=== PATIENT | female | born 1950 | race African-American/Black ===

== ENCOUNTER 2016-07-14 15:41 | Inpatient (IN) | payer MEDICARE, OTHER ==
[~2016-07-14] VITALS: Ht 160 cm; Wt 118.0 kg
--- NOTE | 2016-07-14 15:55 | EKG ---
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
[2016-07-14] MEDS ORDERED: IV NORMAL SALINE 1,000ML 1,000 ML IV SCH (15:56)
[2016-07-14] MEDS ORDERED: 0.9 % SODIUM CHLORIDE 10 ML DISP.SYRIN. IV PRN (16:00)
--- NOTE | 2016-07-14 16:10 | PHYS DOC ---
Past History Past Medical History: CAD, Diabetes Past Surgical History: Cholecystectomy, Knee Replacement (the left), Tubal ligation Additional Past Surgical Histo: the left Smoking: Non-smoker Alcohol Use: None Drug Use: None Adult General Chief Complaint Chief Complaint: CHEST PAIN HPI HPI Patient is a pleasant 66-year-old female with history of hypertension and diabetes who presents with abdominal pain and chest pain that began at 3 AM this morning. Patient was 7 from insomnia and woke up at 3 AM and drank 2 cups of coffee. She developed lower suprapubic abdominal pain described as crampy and achy with no radiation that pain waxed and waned for approximately 2-3 hours since exam resolved. Patient then shortly thereafter about noon developed epigastric abdominal pain radiating into the chest described as sharp in nature without radiation to the back shoulder or neck. Patient denies any shortness of breath with the symptoms at this time but did develop some mild dizziness without cough or URI symptoms, fevers, chills, diarrhea. She does admit she had 7 small bowel movements today most of well heart formed stool. Patient denies any trauma, sick contacts or similar symptoms. No change in medications. Patient admits 3 months ago in April she had a knee replacement on the left than suffering from bilateral lower extremity edema since. Patient also mentioned she had ultrasound done several weeks ago at another facility because of her swelling and pain in her lower legs and then showed no DVT. Nothing causes her abdominal pain to increase despite eating food, exertion or position. Review of Systems Review of Systems Constitutional: Denies fever or chills [] Eyes: Denies change in visual acuity, redness, or eye pain [] HENT: Denies nasal congestion or sore throat [] Respiratory: Denies cough or shortness of breath [] Cardiovascular: No additional information not addressed in HPI [] GI: Complains of abdominal pain without nausea vomiting but only constipation. : Denies dysuria or hematuria [] Musculoskeletal: Denies back pain or she does have lower extremity edema and pain has chronic in nature. Integument: Denies rash or skin lesions [] Neurologic: Denies headache, focal weakness or sensory changes [] Endocrine: Denies polyuria or polydipsia [] Current Medications Current Medications Current Medications Medications (Trade) Dose Ordered Sig/Abhishek Start Time Stop Time Status Last Admin Dose Admin Aspirin (Children'S Aspirin) 324 mg 1X ONCE 07/14/16 16:00 07/14/16 16:01 UNV Hydromorphone HCl (Dilaudid) 0.5 mg 1X ONCE 07/14/16 16:00 07/14/16 16:01 UNV Sodium Chloride (Normal Saline Flush) 10 ml QSHIFT PRN 07/14/16 16:00 UNV Physical Exam Physical Exam Constitutional: Well developed, well nourished, no acute distress, non-toxic appearance. [] HENT: Normocephalic, atraumatic, bilateral external ears normal, oropharynx moist, no oral exudates, nose normal. [] Eyes: PERRLA, EOMI, conjunctiva normal, no discharge. [] Neck: Normal range of motion, no tenderness, supple, no stridor. [] Cardiovascular:Heart rate regular rhythm, no murmur [] Lungs & Thorax: Bilateral breath sounds clear to auscultation [] Abdomen: Bowel sounds normal, soft, no tenderness, no masses, no pulsatile masses. [] Skin: Warm, dry, no erythema, no rash. [] Back: No tenderness, no CVA tenderness. [] Extremities: No tenderness, no cyanosis, no clubbing, ROM intact, no edema. [] Neurologic: Alert and oriented X 3, normal motor function, normal sensory function, no focal deficits noted. [] Psychologic: Affect normal, judgement normal, mood normal. [] Current Patient Data Lab Results Laboratory Tests Test 07/14/16 16:00 07/14/16 16:08 07/14/16 16:10 White Blood Count 6.8 x10^3/uL (4.0-11.0) Red Blood Count 4.45 x10^6/uL (3.50-5.40) Hemoglobin 11.2 g/dL (12.0-15.5) L Hematocrit 34.1 % (36.0-47.0) L Mean Corpuscular Volume 77 fL (79-100) L Mean Corpuscular Hemoglobin 25 pg (25-35) Mean Corpuscular Hemoglobin Concent 33 g/dL (31-37) Red Cell Distribution Width 20.6 % (11.5-14.5) H Platelet Count 218 x10^3/uL (140-400) Neutrophils (%) (Auto) 73 % (31-73) Lymphocytes (%) (Auto) 12 % (24-48) L Monocytes (%) (Auto) 10 % (0-9) H Eosinophils (%) (Auto) 5 % (0-3) H Basophils (%) (Auto) 1 % (0-3) Neutrophils # (Auto) 5.0 x10^3uL (1.8-7.7) Lymphocytes # (Auto) 0.8 x10^3/uL (1.0-4.8) L Monocytes # (Auto) 0.7 x10^3/uL (0.0-1.1) Eosinophils # (Auto) 0.3 x10^3/uL (0.0-0.7) Basophils # (Auto) 0.0 x10^3/uL (0.0-0.2) D-Dimer (Amy) 2.85 mg/L (0.00-0.50) H Sodium Level 143 mmol/L (136-145) Potassium Level 3.1 mmol/L (3.5-5.1) L Chloride Level 104 mmol/L (98-107) Carbon Dioxide Level 30 mmol/L (21-32) Anion Gap 9 (6-14) Blood Urea Nitrogen 8 mg/dL (7-20) Creatinine 0.7 mg/dL (0.6-1.0) Estimated GFR (Cockcroft-Gault) 101.0 BUN/Creatinine Ratio 11 (6-20) Glucose Level 177 mg/dL (70-99) H Calcium Level 9.3 mg/dL (8.5-10.1) Magnesium Level 1.7 mg/dL (1.8-2.4) L Total Bilirubin 0.7 mg/dL (0.2-1.0) Aspartate Amino Transferase (AST) 15 U/L (15-37) Alanine Aminotransferase (ALT) 16 U/L (14-59) Alkaline Phosphatase 62 U/L (46-116) Creatine Kinase 50 U/L (26-192) Creatine Kinase MB (Mass) 0.7 ng/mL (0.0-3.6) Creatine Kinase MB Relative Index 1.4 % (0-4) Troponin I Quantitative 0.030 ng/mL (0-0.055) WR-Faf-O-Type Natriuretic Peptide 623 pg/mL (0-124) H Total Protein 8.3 g/dL (6.4-8.2) H Albumin 4.1 g/dL (3.4-5.0) Albumin/Globulin Ratio 1.0 (1.0-1.7) Lipase 131 U/L (73-393) Urine Collection Type Unknown Urine Color Straw Urine Clarity Clear Urine pH 7.5 Urine Specific [place] 1.015 Urine Protein 100 mg/dl (NEG-TRACE) Urine Glucose (UA) Neg mg/dL (NEG) Urine Ketones (Stick) Neg mg/dL (NEG) Urine Blood Trace (NEG) Urine Nitrite Neg (NEG) Urine Bilirubin Neg (NEG) Urine Urobilinogen Dipstick 0.2 mg/dL (0.2 mg/dL) Urine Leukocyte Esterase Neg (NEG) Urine RBC Occ /HPF (0-2) Urine WBC 1-4 /HPF (0-4) Urine Squamous Epithelial Cells Mod /LPF Urine Bacteria 0 /HPF (0-FEW) EKG EKG [] Radiology/Procedures Radiology/Procedures [] IMAGING REPORT Signed PATIENT: MARGO REYES ACCOUNT: [id number] : 1950 LOCATION: ER AGE: 66 SEX: F EXAM STATUS: REG ER ORD. PHYSICIAN: DAVE JOHNSTON MD REASON: chest pain PROCEDURE: CHEST PA & LATERAL Examination: 2 views of the chest History: History of diabetes, shortness of breath Comparison: 10/20/2005 Findings: Mild cardiomegaly. There is prominent appearing bilateral interstitial lung markings likely mild congestive change. Impression: Mild congestive changes DICTATED AND SIGNED BY: JESE MENDEZ MD DATE: 07/14/161657 CC: DAVE JOHNSTON MD; EL GASTELUM Signed PATIENT: MARGO REYES ACCOUNT: [id number] : 1950 LOCATION: ER AGE: 66 SEX: F EXAM STATUS: REG ER ORD. PHYSICIAN: DAVE JOHNSTON MD REASON: lower leg pain and swelling PROCEDURE: VENOUS LOWER EXT BILATERAL Examination: Ultrasound bilateral lower extremity venous duplex History: History of bilateral leg pain, swelling Comparison: None available Technique: Grayscale, color Doppler 2-D, spectral waveform analysis of the bilateral lower extremity venous system were performed Findings: The visualized common femoral vein, superior femoral vein, popliteal vein demonstrate normal compression and augmentation of flow. The visualized calf veins are patent. Impression: No evidence of deep venous thrombosis identified in the visualized bilateral lower extremity venous system. DICTATED AND SIGNED BY: JESE MENDEZ MD DATE: 07/14/16 1650 CC: DAVE JOHNSTON MD; EL GASTELUM ~ Course & Med Decision Making Course & Med Decision Making Pertinent Labs and Imaging studies reviewed. (See chart for details) She presents with chest pain began as epigastric pain now rating this in the chest with some [place] after drinking coffee. Patient's initial troponin is negative EKG read by Dr. Johnston time 1553 07/14/2016 demonstrates sinus rhythm with marked sinus arrhythmia. There were QRS QRS is normal with an approximately 88 patient demonstrates left atrial enlargement as evidenced by P waves to the greater than 2 mm in lead 2. Patient has nausea of a T-wave flattening in the anterior leads V1 area patient has relatively poor R-wave progression. This juncture is also noted on her laboratory work her d-dimer is markedly elevated at 2.85. Ultrasound completed today and there is no evidence of DVT. Her pro BNP is mildly elevated above 650 although she doesn't look heart failure patient does have cephalization and cardiomegaly on chest x-ray. CT his chest is still pending at this time. CTA completed that demonstrates no PE, but LAD is noted with plueral effusion. Patient admitted to Dr. Barber secondary to CHF that might be from cardiac ischemia. DDX. [] Signed PATIENT: MARGO REYES ACCOUNT: [id number] : 1950 LOCATION: ER AGE: 66 SEX: F EXAM STATUS: REG ER ORD. PHYSICIAN: DAVE JOHNSTON MD REASON: sob with cp PROCEDURE: CT ANGIOGRAPHY CHEST PROCEDURE CTA of the chest with and without contrast HISTORY Diabetes. Chest pain with shortness of air less than 24 hours. TECHNIQUE Noncontrast axial localizer was performed. After IV infusion of 75 milliliters of Omnipaque 300, helical CT scanning of the chest was performed using the CT pulmonary embolism protocol. A coronal MIP reconstruction was generated. One or more of the following individualized dose reduction techniques were utilized for this study: 1. Automated exposure control 2. Adjustment of the mA and/or kV according to patient size 3. Use of iterative reconstruction technique COMPARISON None available. FINDINGS Mediastinal lymph nodes are seen. Largest lymph node is seen just to the left of the aortic arch measuring 18 millimeters. Another lymph node is seen in the azygos region measuring 16 millimeters. The heart size is enlarged. A mild pericardial effusion is seen. No focal aneurysmal dilatation or dissection of the thoracic aorta is seen. The main pulmonary artery is enlarged. Right and left main pulmonary arteries are enlarged. No pulmonary embolism is seen however. Small right-sided pleural effusion is seen. Mild ground-glass lung infiltrates are seen which may represent pulmonary edema or atelectasis. No pneumothorax is seen. The proximal bronchial tree is patent. No osteolytic process is seen. No adrenal mass is evident. IMPRESSION No pulmonary embolism. Enlarged main pulmonary trunk and right and left main pulmonary arteries. This may be seen with pulmonary arterial hypertension. Cardiomegaly with small pericardial effusion. Small right-sided pleural effusion. Ground-glass lung infiltrates bilaterally which may represent pulmonary edema or atelectasis. Mediastinal lymph nodes. Clinical significance of these lymph nodes is uncertain. If clinically indicated, follow-up chest CT with IV contrast in 6 months may be helpful to ensure stability. Electronically signed by: Rosalva Morelos MD (July 14, 2016 17:48:04) DICTATED AND SIGNED BY: ROSALVA MORELOS MD DATE: 07/14/16 1748 CC: DAVE JOHNSTON MD; EL GASTELUM ~ [employer] Disclaimer Dragon Disclaimer This chart was dictated in whole or in part using Voice Recognition software in a busy, high-work load, and often noisy Emergency Department environment. It may contain unintended and wholly unrecognized errors or omissions. Departure Departure: Impression: Primary Impression: Chest pain Additional Impression: CHF (congestive heart failure) Disposition: 09 ADMITTED INPATIENT Admitting Physician: Gloria Barber Condition: STABLE Referrals: EL GASTELUM (PCP) Problem Qualifiers DAVE JOHNSTON MD July 14, 2016 16:10
[2016-07-14 16:27] LABS: BASO % 1 % (0-3); EOS # 0.3 x10^3/uL (0.0-0.7); EOS % 5 % (0-3); HEMATOCRIT 34.1 % (36.0-47.0); HEMOGLOBIN 11.2 g/dL (12.0-15.5); LYMPH # 0.8 x10^3/uL (1.0-4.8); LYMPH % 12 % (24-48); MEAN CORPUSCULAR HEMOGLOBIN 25 pg (25-35); MEAN CORPUSCULAR HGB CONC 33 g/dL (31-37); MEAN CORPUSCULAR VOLUME 77 fL (79-100); MONO # 0.7 x10^3/uL (0.0-1.1); MONO % 10 % (0-9); NEUT % 73 % (31-73); PLATELET COUNT 218 x10^3/uL (140-400); RED BLOOD COUNT 4.45 x10^6/uL (3.50-5.40); RED CELL DISTRIBUTION WIDTH 20.6 % (11.5-14.5); WHITE BLOOD COUNT 6.8 x10^3/uL (4.0-11.0)
[2016-07-14] MEDS ORDERED: HYDROmorphone PF 1 MG/ML DISP.SYRIN IV ONE (16:30)
[2016-07-14] MEDS ORDERED: IOHEXOL 300 MG/ML 75 ML VIAL. IV ONE (16:30)
[2016-07-14] MEDS ORDERED: ASPIRIN 81 MG TAB.CHEW PO ONE (16:30)
[2016-07-14 16:45] LABS: BILIRUBIN,URINE NEG (NEG); CLARITY,URINE CLEAR; COLOR,URINE STRAW; GLUCOSE,URINE NEG (NEG); NITRITE,URINE NEG (NEG); UROBILINOGEN,URINE 0.2 mg/dL (0.2 mg/dL)
[2016-07-14 16:49] LABS: ALBUMIN 4.1 g/dL (3.4-5.0); CALCIUM 9.3 mg/dL (8.5-10.1); CREATININE 0.7 mg/dL (0.6-1.0); MAGNESIUM 1.7 mg/dL (1.8-2.4); POTASSIUM 3.1 mmol/L (3.5-5.1); TOTAL BILIRUBIN 0.7 mg/dL (0.2-1.0); TOTAL PROTEIN 8.3 g/dL (6.4-8.2)
[2016-07-14 16:49] LABS: BACTERIA,URINE 0 /HPF (0-FEW); RBC,URINE OCC /HPF (0-2); SQUAMOUS EPITHELIAL CELL,UR MOD /LPF
--- NOTE | 2016-07-14 16:54 | RAD ---
Examination: Ultrasound bilateral lower extremity venous duplex History: History of bilateral leg pain, swelling Comparison: None available Technique: Grayscale, color Doppler 2-D, spectral waveform analysis of the bilateral lower extremity venous system were performed Findings: The visualized common femoral vein, superior femoral vein, popliteal vein demonstrate normal compression and augmentation of flow. The visualized calf veins are patent. Impression: No evidence of deep venous thrombosis identified in the visualized bilateral lower extremity venous system.
--- NOTE | 2016-07-14 17:02 | RAD ---
Examination: 2 views of the chest History: History of diabetes, shortness of breath Comparison: 10/20/2005 Findings: Mild cardiomegaly. There is prominent appearing bilateral interstitial lung markings likely mild congestive change. Impression: Mild congestive changes
--- NOTE | 2016-07-14 17:49 | RAD ---
PROCEDURE CTA of the chest with and without contrast HISTORY Diabetes. Chest pain with shortness of air less than 24 hours. TECHNIQUE Noncontrast axial localizer was performed. After IV infusion of 75 milliliters of Omnipaque 300, helical CT scanning of the chest was performed using the CT pulmonary embolism protocol. A coronal MIP reconstruction was generated. One or more of the following individualized dose reduction techniques were utilized for this study: 1. Automated exposure control 2. Adjustment of the mA and/or kV according to patient size 3. Use of iterative reconstruction technique COMPARISON None available. FINDINGS Mediastinal lymph nodes are seen. Largest lymph node is seen just to the left of the aortic arch measuring 18 millimeters. Another lymph node is seen in the azygos region measuring 16 millimeters. The heart size is enlarged. A mild pericardial effusion is seen. No focal aneurysmal dilatation or dissection of the thoracic aorta is seen. The main pulmonary artery is enlarged. Right and left main pulmonary arteries are enlarged. No pulmonary embolism is seen however. Small right-sided pleural effusion is seen. Mild ground-glass lung infiltrates are seen which may represent pulmonary edema or atelectasis. No pneumothorax is seen. The proximal bronchial tree is patent. No osteolytic process is seen. No adrenal mass is evident. IMPRESSION No pulmonary embolism. Enlarged main pulmonary trunk and right and left main pulmonary arteries. This may be seen with pulmonary arterial hypertension. Cardiomegaly with small pericardial effusion. Small right-sided pleural effusion. Ground-glass lung infiltrates bilaterally which may represent pulmonary edema or atelectasis. Mediastinal lymph nodes. Clinical significance of these lymph nodes is uncertain. If clinically indicated, follow-up chest CT with IV contrast in 6 months may be helpful to ensure stability. Electronically signed by: Shaheen Morelos MD (July 14, 2016 17:48:04)
[2016-07-14] MEDS ORDERED: ONDANSETRON PF 4 MG/2 ML VIAL. IV PRN (18:15)
[2016-07-14] MEDS ORDERED: ACETAMINOPHEN 325 MG TABLET PO PRN (18:15)
[2016-07-14] MEDS ORDERED: fentaNYL PF 100 MCG/2 ML VIAL IV PRN (18:15)
[2016-07-14] MEDS ORDERED: FUROSEMIDE 40 MG/4 ML VIAL IVP ONE (18:30)
--- NOTE | 2016-07-14 19:04 | ACF ---
Admission Criteria Forms CARDIOLOGY [facility]G Clinical Indications for Admission to Inpatient Care ( Place 'X' for any and all applicable criteria): Hospital admission is needed for appropriate care of the patient because of ANY ONE of the following (1): [ ] I. Hemodynamic instability as indicated by ALL of the following (1)(2)(3) (4)(5) [ ]a) Vital signs or other findings not as expected for chronic patient condition or baseline [ ]b) Instability indicated by ANY ONE of the following: [ ]i) Hypotension [ ]ii) Symptomatic Tachycardia unresponsive to treatment ( e.g., analgesia, fluids, sedation as indicated) [ ]iii) Inadequate perfusion indicated by ANY ONE of the following: [ ] 1) Lactic acidosis (> 2 mmol/L) [ ] 2) New abnormal capillary refill (> 3 seconds) [ ] 3) Reduced urine output [ ] 4) New altered mental status [ ]iv) Orthostatic vital sign changes unresponsive to treatment (e.g., fluids) [ ]v) IV inotropic or vasopressor medication required to maintain adequate blood pressure or perfusion [ ] II. Severe heart failure as indicated by ANY ONE of the following(17)(18) [ ]a) Respiratory distress [ ]b) Hypotension [ ]c) Anasarca (refractory to outpatient therapy) [ ]d) Cardiac arrhythmias of immediate concern [ ]e) Myocardial ischemia [ ] III. Cardiac arrhythmias or findings of immediate concern indicated by ANY ONE of the following (19)(20): [ ] a) Heart rhythms that are inherently dangerous or unstable indicated by ANY ONE of the following (21)(22)(23): [ ] i) Resuscitated ventricular fibrillation or cardiac arrest [ ] ii) Ventricular escape rhythm [ ] iii) Sustained ventricular tachycardia (30 seconds or more of ventricular rhythm at greater than 100 beats per minute) [ ] iv) Nonsustained ventricular tachycardia and ANY ONE of the following: [ ] 1) Suspected cardiac ischemia as cause or consequence of ventricular tachycardia [ ] 2) In setting of acute myocarditis [ ] b) Unstable cardiac conduction defects indicated by ANY ONE of the following(23)(24)(25) [ ] i) Type II second-degree atrioventricular block [ ]ii) Third-degree atrioventricular block [ ]iii) New-onset left bundle branch block with suspected myocardial ischemia [ ]c) Any heart rhythm and ANY ONE of the following (21)(22)(26)(27) (28) [ ] i) Continuous long-term ECG monitoring needed (e.g., initiation of drug requiring monitoring for more than 24 hours) [ ] ii) Patient has automatic implanted cardioverter defibrillator that is repeatedly firing, malfunctioning, or in need of immediate adjustment of settings beyond the scope of ambulatory or observation care [ ]d) Heart rhythms of concern due to ANY ONE of the following: [ ] i) Hypotension [ ] ii) Respiratory distress [ ] iii) Association with other significant symptoms (e.g., bradycardia with syncope or ongoing dizziness, supraventricular tachycardia with chest pain (14)(15)(17) [ ] IV. Monitoring for cardiac contusion beyond the scope of observation care needed [A](30)(31)(32) [ ] V. Surgical or device complication (e.g., valve replacement complication , pacemaker dysfunction) (35)(41)(44)(45)(46) [ ] . Inpatient palliative care needed. [B](49) Also use Inpatient Palliative Care Criteria [ ] VII. Nonbacterial thrombotic (marantic) endocarditis (36)(43)(47)(48) [X] VIII. Cardiology condition, symptom, or finding for which emergency and observation care has failed or are not considered appropriate. [ ] IX. Acute valvular disease requiring inpatient as indicated by ANY ONE of the following (41) [ ]a) Acute valvular regurgitation (42) [ ]b) Noninfectious valvulitis (43) [ ]c) Obstructive valve thrombosis [ ]d) Paravalvular leak [ ]e) Other significant valvular disorder remaining after emergency or observation level of care (as appropriate) [ ]X. Pericardial disease requiring inpatient treatment as indicated by ANY ONE of the following (33)(34)(35)(36)(37) [ ]a) Suspected tamponade (38)(39)(40) [ ]b) Hemopericardium [ ]c) Other significant pericardial disorder remaining after emergency or observation level of care (as appropriate) [ ] XI. Cardiac ischemia beyond scope of emergency and observation care. [ ] XII. Hypertension requiring inpatient treatment as indicated by ANY ONE of the following (6)(7)(8) [ ]a) SBP greater than 220 mm Hg or DBP greater than 120 mmHg despite treatment [ ]b) SBP greater than 140 mm Hg or DBP greater than 100 mm Hg with evidence of acute end organ damage as indicated by ANY ONE of the following [ ] i) Encephalopathy [ ] ii) Acute renal failure as indicated by new onset of ANY ONE of the following (9)(10)(11)(12)(13) [ ]1) 3-fold rise in serum creatinine from baseline [ ]2) Serum creatinine greater than 4 mg/dL ( 354 micromoles/L) with acute rise greater than 0.5 mg/dL (44.2 micromoles/L) [ ]3) Reduction of more than 75% in estimated glomerular filtration rate from baseline [ ]4) Estimated glomerular filtration rate less than 35 mL/min/1.73m2 (0.59 mL/sec/1.73m2) in child up to 18 years of age [ ]5) Cessation of urine output indicated by ALL of the following [ ]A. Adequate volume status [ ]B. Inadequate urine output as indicated by ANY ONE of the following [ ]a. Urine output less than 0.3 mL/kg/hr for 24 hours [ ]b. Anuria (urine output less than 0.1 mL/kg/hr) for 12 hours [ ] iii) Aortic dissection [ ] iv) Myocardial Ischemia [ ] v) Left ventricular heart failure [ ]vi) Retinal Hemorrhage [ ]vii) Other significant finding [ ]c) Hypertension in child requiring inpatient treatment as indicated by ALL of the following(14)(15)(16) [ ] i) Outpatient treatment not effective, not available, or not appropriate [ ]ii) SBP or DBP greater than 95th percentile for age [ ]iii) Evidence of acute end organ damage as indicated by ANY ONE of the following [ ]1) Altered mental status [ ]2) Acute renal failure as indicated by new onset of ANY ONE of the following(9)(10)(11)(12)(13) [ ]A. 3-fold rise in serum creatinine from baseline [ ]B. Serum creatinine greater than 4 mg/dL (354 micromoles/L) with acute rise greater than 0.5 mg/dL (44.2 micromoles/L) [ ]C. Reduction of more than 75% in estimated glomerular filtration rate from baseline [ ]D. Estimated glomerular filtration rate less than 35 mL/min/1.73m2 (0.59 mL/sec/1.73m2) in child up to 18 years of age [ ]E. Cessation of urine output indicated by ALL of the following [ ]a. Adequate volume status [ ]b. Inadequate urine output as indicated by ANY ONE of the following [ ]i) Urine output less than 0.3 mL/kg/hr for 24 hours [ ]ii) Anuria ( urine output less than 0.1 mL/kg/hr) for 12 hours [ ]3) Severe headache [ ]4) Visual disturbance [ ]5) Retinal hemorrhage [ ]6) Other significant finding [ ]XIII. Complications of transplanted heart indicated by ANY ONE of the following(61): [ ]a) Acute graft rejection requiring inpatient management (eg, intravenous immunosuppression)(62)(63) [ ]b) Acute graft heart failure indicated by ANY ONE of the following(64): [ ]i) Hemodynamic instability [ ]ii) Cardiac arrhythmias of immediate concern [ ]iii) Pulmonary edema that is very severe (eg, mechanical ventilation needed, imminent or likely, need for 100% oxygen to keep oxygen saturation above 90%) [ ]iv) Pulmonary edema that is persistent as indicated by ALL of the following: [ ]1) New need for oxygen therapy to keep oxygen saturation above 90% (or increased FiO2 need from baseline) [ ]2) Has not improved sufficiently with emergency department or observation care IV diuretics or other heart failure treatments[E] [ ]v) Altered mental status that is severe or persistent [ ]vi) Increased creatinine (new on laboratory test) with reduction of more than 50% in estimated glomerular filtration rate from baseline [ ]vii) Progressively (ongoing) rising creatinine (known from past laboratory test) with reduction of more than 25% in estimated glomerular filtration rate from baseline [ ]viii) Acute renal failure [ ]ix) Acute peripheral ischemia (eg, examination shows pulseless, cool, mottled, or cyanotic extremity) [ ]x) Pulmonary artery catheter monitoring needed [ ]xi) Other sign or symptom of heart failure requiring inpatient treatment (ie, too severe or not responsive to outpatient and observation care treatment) [ ]c) Infection requiring inpatient management (eg, Hemodynamic instability, need for intravenous antimicrobial treatment)(66)(67)(68)(69)(70) [ ]d) Cardiac allograft vasculopathy requiring inpatient management ( eg evidence of cardiac ischemia)(71) [ ]e) Other complication of transplanted heart (eg, stroke, severe pulmonary hypertension, severe valvular dysfunction) requiring inpatient management(72) The original [email or web address] content created by [facility] has been revised. The portions of the content which have been revised are identified through the use of italic text or in bold, and [facility] has neither reviewed nor approved the modified material. All other unmodified content is copyright [email or web address]. Please see references footnoted in the original [email or web address] edition 2016 Admission Criteria Met?: Yes WILL HOUSTON July 14, 2016 19:04
[2016-07-14] MEDS ORDERED: POTASSIUM CHLORIDE 20 MEQ TABLET.ER. PO ONE (19:30)
[2016-07-14] MEDS ORDERED: MAGNESIUM SULFATE 2GM 50 ML IV ONE (19:30)
[2016-07-14] MEDS: KETOROLAC 15 MG/ML VIAL. IV PRN (19:47)
[2016-07-14] MEDS ORDERED: INSU100I13 SQ (20:15)
[2016-07-14] MEDS ORDERED: INSU100V31 SQ (20:15)
[2016-07-14] MEDS ORDERED: MONT10TA9 PO (20:15)
[2016-07-14] MEDS ORDERED: METF500T9 PO (20:15)
[2016-07-14] MEDS ORDERED: CETI10TA22 PO (20:15)
[2016-07-14] MEDS ORDERED: CLON0.1T PO (20:18)
[2016-07-14] MEDS ORDERED: AMLO5TAB4 PO (20:18)
[2016-07-14] MEDS ORDERED: CARV12.5 PO (20:18)
[2016-07-14] MEDS ORDERED: SIMV20TA PO (20:18)
[2016-07-14 20:26] VITALS: BP 161/80
[2016-07-14 21:28] LABS: ANISOCYTOSIS MOD; MICROCYTOSIS SLIGHT; PLT ESTIMATE ADEQUATE (ADEQUATE); POLYCHROMASIA PRESENT
[2016-07-14 23:17] VITALS: BP 154/70
[2016-07-15] VITALS (7 sets, daily range): BP systolic 129–194; BP diastolic 61–80
[2016-07-15] MEDS: KETOROLAC 15 MG/ML VIAL. IV PRN ×2 (02:06→11:46)
[2016-07-15 08:02] LABS: BASO % 1 % (0-3); EOS # 0.4 x10^3/uL (0.0-0.7); EOS % 5 % (0-3); HEMATOCRIT 32.5 % (36.0-47.0); HEMOGLOBIN 10.8 g/dL (12.0-15.5); LYMPH % 14 % (24-48); MEAN CORPUSCULAR HEMOGLOBIN 25 pg (25-35); MEAN CORPUSCULAR HGB CONC 33 g/dL (31-37); MEAN CORPUSCULAR VOLUME 77 fL (79-100); MONO # 0.9 x10^3/uL (0.0-1.1); MONO % 13 % (0-9); NEUT # 4.8 x10^3uL (1.8-7.7); NEUT % 67 % (31-73); PLATELET COUNT 218 x10^3/uL (140-400); RED BLOOD COUNT 4.24 x10^6/uL (3.50-5.40); RED CELL DISTRIBUTION WIDTH 20.7 % (11.5-14.5); WHITE BLOOD COUNT 7.2 x10^3/uL (4.0-11.0)
[2016-07-15 08:16] LABS: CALCIUM 9.1 mg/dL (8.5-10.1); CREATININE 0.7 mg/dL (0.6-1.0); MAGNESIUM 1.9 mg/dL (1.8-2.4); TOTAL BILIRUBIN 0.7 mg/dL (0.2-1.0); TOTAL PROTEIN 8.1 g/dL (6.4-8.2)
[2016-07-15 08:26] LABS: POTASSIUM 2.9 mmol/L (3.5-5.1)
[2016-07-15] MEDS ORDERED: POTASSIUM CHLORIDE 20 MEQ TABLET.ER. PO ONE (08:45)
[2016-07-15] MEDS ORDERED: LIDO700A39 TP (09:03)
[2016-07-15] MEDS ORDERED: INSU100I17 SQ (09:04)
[2016-07-15] MEDS ORDERED: ACYC400T PO (09:05)
[2016-07-15] MEDS ORDERED: ALBU8.5H8 INH (09:06)
[2016-07-15] MEDS ORDERED: DULO30CA2 PO (09:07)
[2016-07-15] MEDS ORDERED: VALS320T2 PO (09:08)
[2016-07-15] MEDS ORDERED: FLUT1DIS3 IH (09:08)
[2016-07-15] MEDS ORDERED: ASPI-630 PO (09:09)
[2016-07-15] MEDS ORDERED: FLUT16SP21 NS (09:09)
[2016-07-15] MEDS ORDERED: hydrALAZINE 20 MG/ML VIAL. IV PRN (09:15)
[2016-07-15] MEDS ORDERED: ALBUTEROL SULFATE 8GM INHALER. INH PRN (09:30)
[2016-07-15] MEDS: CETIRIZINE HCL 10 MG TABLET PO SCH ×2 (10:08→10:14)
[2016-07-15] MEDS: ACYCLOVIR 200 MG CAPSULE PO SCH (10:08)
[2016-07-15] MEDS: PANTOPRAZOLE 40 MG TABLET. PO SCH (10:08)
[2016-07-15] MEDS: metFORMIN XR 500 MG TAB.ER.24H PO SCH ×2 (10:08→21:45)
[2016-07-15] MEDS: amLODIPine BESYLATE 10 MG TABLET PO SCH (10:09)
[2016-07-15] MEDS ORDERED: LIDOCAINE (700MG/PATCH) PATCH. TP PRN (10:15)
[2016-07-15] MEDS ORDERED: LIDO:MAALOX 1:1 20 ML SINGLE DOSE PO ONE (10:15)
[2016-07-15] MEDS ORDERED: ASPIRIN 81 MG TAB.CHEW PO SCH ×2 (10:15→21:00)
[2016-07-15] MEDS ORDERED: LIDOCAINE (700MG/PATCH) PATCH. TP SCH (10:15)
[2016-07-15] MEDS: LOSARTAN 50 MG TABLET. PO SCH (10:40)
[2016-07-15] MEDS: CARVEDILOL 25 MG TABLET PO SCH ×2 (10:40→16:52)
[2016-07-15] MEDS: cloNIDine HCL 0.2 MG TABLET PO SCH ×2 (10:40→21:45)
[2016-07-15] MEDS: POTASSIUM CHLORIDE 10MEQ 50 ML IV SCH ×4 (10:41→13:16)
--- NOTE | 2016-07-15 10:42 | PDOC2 ---
CONSULT Date of Admission DATE: 07/15/16 TIME: 10:32 Reason for Consult: cp Problem List Problems Medical Problems: (1) Chest pain Status: Acute (2) CHF (congestive heart failure) Status: Acute History of Present Illness Ms Hdz is a 66 year old female who presents with complaints of chest pain. She reports she woke early yesterday, got up and drank some coffee and had almost immediate onset of abdominal pain. She had several episodes of diarrhea and then lay down to sleep. She woke about 2 hours later with mid sternal pain and associated dyspnea. She denies any increase with exertion, denies any palpitations. She does report associated dyspnea. She presented to the ED for evaluation. She continues to complain of acid reflux type symptoms this am. She has additional complaints of dyspnea on exertion over the last 3-4 weeks. She reports this with walking up the stairs or any distance. This symptom is new for her. She denies any lightheadedness, palpitations, or syncope. She had knee surgery on Apr 02 and complains of some swelling in her knees and ankles since that time. Past Medical History diabetes mellitus, hypertension on multiple medications, hyperlipidemia, COPD Past Surgical History: Appendectomy, Total knee replacement, Tubal Ligation Family History HTN, DM Social History non smoker, no illicit drugs or significant ETOH Current Medications Current Medications Aspirin (Children'S Aspirin) 324 mg 1X ONCE PO Last administered on 07/14/16 16:40; Start 07/14/16 at 16:30; Stop 07/14/16 at 16:31; Status DC Hydromorphone HCl (Dilaudid) 0.5 mg 1X ONCE IV Last administered on 07/14/16 17:29; Start 07/14/16 at 16:30; Stop 07/14/16 at 16:31; Status DC Sodium Chloride 1,000 ml @ 1,000 mls/hr Q1H IV Last administered on 07/14/16 17:29; Start 07/14/16 at 15:56; Stop 07/14/16 at 16:55; Status DC Sodium Chloride (Normal Saline Flush) 10 ml QSHIFT PRN IV AFTER MEDS AND BLOOD DRAWS; Start 07/14/16 at 16:00 Iohexol (Omnipaque 300 Mg/ml) 75 ml 1X ONCE IV Last administered on 07/14/16 16:43; Start 07/14/16 at 16:30; Stop 07/14/16 at 16:31; Status DC Furosemide (Lasix) 40 mg 1X ONCE IVP Last administered on 07/14/16 19:47; Start 07/14/16 at 18:30; Stop 07/14/16 at 18:31; Status DC Ondansetron HCl (Zofran) 4 mg PRN Q4HRS PRN IV NAUSEA/VOMITING; Start 07/14/16 at 18:15; Stop 07/15/16 at 18:14 Fentanyl Citrate (Fentanyl 2ml Vial) 50 mcg PRN Q2HR PRN IV PAIN; Start at 18:15; Stop 07/15/16 at 18:14 Acetaminophen (Tylenol) 650 mg PRN Q4HRS PRN PO FEVER; Start 07/14/16 at 18:15 ; Stop 07/15/16 at 18:14 Magnesium Sulfate 50 ml @ 25 mls/hr 1X ONCE IV Last administered on 07/14/16 19:46; Start 07/14/16 at 19:30; Stop 07/14/16 at 21:29; Status DC Potassium Chloride (Klor-Con) 20 meq 1X ONCE PO Last administered on 19:46; Start 07/14/16 at 19:30; Stop 07/14/16 at 19:31; Status DC Ketorolac Tromethamine (Toradol) 15 mg Q6HRS PRN IV PAIN Last administered on 02:06; Start 07/14/16 at 19:30; Stop 07/19/16 at 19:29 Potassium Chloride (Klor-Con) 40 meq 1X ONCE PO ; Start 07/15/16 at 08:45; Stop 07/15/16 at 09:21; Status DC Amlodipine Besylate (Norvasc) 10 mg DAILY PO Last administered on 07/15/16 10: 09; Start 07/15/16 at 10:15 Carvedilol (Coreg) 25 mg BIDWMEALS PO ; Start 07/15/16 at 17:00; Stop 07/15/16 at 17:00; Status DC Cetirizine HCl (Zyrtec) 10 mg DAILY PO ; Start 07/15/16 at 10:15; Stop 07/15/16 at 10:18; Status DC Clonidine HCl (Catapres) 0.2 mg BID PO ; Start 07/15/16 at 21:00; Stop 07/15/16 at 21:00; Status DC Metformin HCl (Glucophage Xr) 500 mg BID PO Last administered on 07/15/16 10: 08; Start 07/15/16 at 09:00 Montelukast Sodium (Singulair) 10 mg HS PO ; Start 07/15/16 at 21:00 Simvastatin (Zocor) 20 mg HS PO ; Start 07/15/16 at 21:00; Status UNV Non-Formulary Medication 20 unit TIDPC SQ ; Start 07/15/16 at 12:30; Stop at 12:30; Status DC Insulin Detemir (Levemir) 65 units BID SQ ; Start 07/15/16 at 21:00 Lisinopril (Prinivil) 10 mg DAILY PO ; Start 07/16/16 at 09:00; Stop 07/16/16 at 09:00; Status DC Hydralazine HCl (Apresoline) 10 mg PRN Q4HRS PRN IV ELEVATED BP, SEE COMMENTS; Start 07/15/16 at 09:15 Pantoprazole Sodium (Protonix) 40 mg DAILYAC PO Last administered on 07/15/16 10:08; Start 07/15/16 at 09:30 Multi-Ingredient Mouthwash/Gargle (Gi Cocktail) 20 ml 1X ONCE PO ; Start at 10:15; Stop 07/15/16 at 10:16; Status DC Potassium Chloride 50 ml @ 0 mls/hr Q1H IV ; Start 07/15/16 at 09:30; Stop 07/15 at 12:31 Albuterol Sulfate (Ventolin Hfa) 1 puff Q4HRS PRN INH COMM; Start 07/15/16 at 09:30; Status UNV Aspirin (Children'S Aspirin) 81 mg DAILY PO ; Start 07/15/16 at 10:15; Stop at 10:18; Status DC Duloxetine HCl (Cymbalta) 30 mg DAILY PO ; Start 07/16/16 at 09:00 Fluticasone Propionate (Flonase) 1 spray DAILY NS ; Start 07/16/16 at 09:00 Insulin Aspart (Novolog) 20 units TIDAC SQ ; Start 07/15/16 at 11:30 Lidocaine (Lidoderm) 3 patch DAILY10 TP ; Start 07/15/16 at 10:15; Stop at 10:18; Status DC Acyclovir (Zovirax) 400 mg DAILY PO Last administered on 07/15/16t 10:08; Start 07/15/16 at 10:15 Non-Formulary Medication 1 each BID IH ; Start 07/15/16 at 21:00; Status UNV Losartan Potassium (Cozaar) 100 mg DAILY PO ; Start 07/15/16 at 10:45 Aspirin (Children'S Aspirin) 81 mg HS PO ; Start 07/15/16 at 21:00 Carvedilol (Coreg) 25 mg BIDWMEALS PO ; Start 07/15/16 at 10:45 Cetirizine HCl (Zyrtec) 10 mg HS PO ; Start 07/15/16 at 21:00 Clonidine HCl (Catapres) 0.2 mg BID PO ; Start 07/15/16 at 10:30 Lidocaine (Lidoderm) 3 patch PRN DAILY PRN TP pain; Start 07/15/16 at 10:15 Active Scripts Active Reported Aspirin 81 Mg Tab.chew 81 Mg PO DAILY Fluticasone Propionate Nasal [place] (Fluticasone Propionate) 16 Gm [place].susp 1 [place] NS DAILY Diovan (Valsartan) 320 Mg Tablet 320 Mg PO DAILY Advair 250-50 Diskus (Fluticasone/Salmeterol) 1 Each Disk.w.dev 1 Each IH BID Cymbalta (Duloxetine Hcl) 30 Mg Capsule.dr 30 Mg PO DAILY Proair Hfa Inhaler (Albuterol Sulfate) 8.5 Gm Hfa.aer.ad 1 Puff INH Q4HRS PRN Acyclovir 400 Mg Tablet 400 Mg PO DAILY Novolog Flexpen (Insulin Aspart) 100 Unit/1 Ml Insuln.pen 20 Unit SQ TIDAC Lidocaine 1 Each Adh..patch 3 Each TP Zocor (Simvastatin) 20 Mg Tablet 20 Mg PO HS LAST DOSE GIVEN: DATE: TIME: NEXT DOSE DUE: DATE: TIME: Norvasc (Amlodipine Besylate) 5 Mg Tablet 10 Mg PO DAILY LAST DOSE GIVEN: DATE: TIME: NEXT DOSE DUE: DATE: TIME: Clonidine Hcl 0.1 Mg Tablet 0.2 Mg PO BID LAST DOSE GIVEN: DATE: TIME: NEXT DOSE DUE: DATE: TIME: Coreg (Carvedilol) 12.5 Mg Tablet 25 Mg PO BIDWMEALS LAST DOSE GIVEN: DATE: TIME: NEXT DOSE DUE: DATE: TIME: Novolog (Insulin Aspart) 100 Unit/1 Ml Vial 20 Unit SQ TIDPC LAST DOSE GIVEN: DATE: TIME: NEXT DOSE DUE: DATE: TIME: Lantus Solostar (Insulin Glargine,Hum.rec.anlog) 100 Unit/1 Ml Insuln.pen 65 Unit SQ BID LAST DOSE GIVEN: DATE: TIME: NEXT DOSE DUE: DATE: TIME: Zyrtec (Cetirizine Hcl) 10 Mg Tablet 10 Mg PO DAILY LAST DOSE GIVEN: DATE: TIME: NEXT DOSE DUE: DATE: TIME: Montelukast Sodium Tablet (Montelukast Sodium) 10 Mg Tablet 10 Mg PO HS LAST DOSE GIVEN: DATE: TIME: NEXT DOSE DUE: DATE: TIME: Metformin Hcl Er (Metformin Hcl) 500 Mg Tab.er.24h 500 Mg PO BID LAST DOSE GIVEN: DATE: TIME: NEXT DOSE DUE: DATE: TIME: Allergies: Coded Allergies: No Known Drug Allergies (Unverified , 07/14/16) Review of System as per HPI General: Alert, Oriented X3, Cooperative, No acute distress HEENT: Atraumatic, EOMI Lungs: Other (few basilar crackles) Heart: Regular rate, Normal S1, Normal S2, Other (no gallops, no obvious murmurs, clicks or rubs) Extremities: No cyanosis, Normal pulses, Other (1+ edema) Neuro: Normal speech, Strength at 5/5 X4 ext Psych/Mental Status: Mental status NL, Mood NL VITALS Vital Signs Date Time Temp Pulse Resp B/P (MAP) Pulse Ox O2 Delivery O2 Flow Rate FiO2 07/15/16 10:09 101 184/80 07/15/16 08:50 98.5 20 95 Room Air Labs Laboratory Tests Test 07/14/16 16:00 07/14/16 16:08 07/14/16 16:10 07/14/16 21:14 White Blood Count 6.8 x10^3/uL (4.0-11.0) Red Blood Count 4.45 x10^6/uL (3.50-5.40) Hemoglobin 11.2 g/dL (12.0-15.5) Hematocrit 34.1 % (36.0-47.0) Mean Corpuscular Volume 77 fL (79-100) Mean Corpuscular Hemoglobin 25 pg (25-35) Mean Corpuscular Hemoglobin Concent 33 g/dL (31-37) Red Cell Distribution Width 20.6 % (11.5-14.5) Platelet Count 218 x10^3/uL (140-400) Neutrophils (%) (Auto) 73 % (31-73) Lymphocytes (%) (Auto) 12 % (24-48) Monocytes (%) (Auto) 10 % (0-9) Eosinophils (%) (Auto) 5 % (0-3) Basophils (%) (Auto) 1 % (0-3) Neutrophils # (Auto) 5.0 x10^3uL (1.8-7.7) Lymphocytes # (Auto) 0.8 x10^3/uL (1.0-4.8) Monocytes # (Auto) 0.7 x10^3/uL (0.0-1.1) Eosinophils # (Auto) 0.3 x10^3/uL (0.0-0.7) Basophils # (Auto) 0.0 x10^3/uL (0.0-0.2) Platelet Estimate Adequate (ADEQUATE) Polychromasia Present Anisocytosis Mod Microcytosis Slight D-Dimer (Amy) 2.85 mg/L (0.00-0.50) Sodium Level 143 mmol/L (136-145) Potassium Level 3.1 mmol/L (3.5-5.1) Chloride Level 104 mmol/L (98-107) Carbon Dioxide Level 30 mmol/L (21-32) Anion Gap 9 (6-14) Blood Urea Nitrogen 8 mg/dL (7-20) Creatinine 0.7 mg/dL (0.6-1.0) Estimated GFR (Cockcroft-Gault) 101.0 BUN/Creatinine Ratio 11 (6-20) Glucose Level 177 mg/dL (70-99) Calcium Level 9.3 mg/dL (8.5-10.1) Magnesium Level 1.7 mg/dL (1.8-2.4) Total Bilirubin 0.7 mg/dL (0.2-1.0) Aspartate Amino Transf (AST/SGOT) 15 U/L (15-37) Alanine Aminotransferase (ALT/SGPT) 16 U/L (14-59) Alkaline Phosphatase 62 U/L (46-116) Creatine Kinase 50 U/L (26-192) Creatine Kinase MB (Mass) 0.7 ng/mL (0.0-3.6) Creatine Kinase MB Relative Index 1.4 % (0-4) Troponin I Quantitative 0.030 ng/mL (0-0.055) VD-Nvo-U-Type Natriuretic Peptide 623 pg/mL (0-124) Total Protein 8.3 g/dL (6.4-8.2) Albumin 4.1 g/dL (3.4-5.0) Albumin/Globulin Ratio 1.0 (1.0-1.7) Lipase 131 U/L (73-393) Urine Collection Type Unknown Urine Color Straw Urine Clarity Clear Urine pH 7.5 Urine Specific Stacy 1.015 Urine Protein 100 mg/dl (NEG-TRACE) Urine Glucose (UA) Neg mg/dL (NEG) Urine Ketones (Stick) Neg mg/dL (NEG) Urine Blood Trace (NEG) Urine Nitrite Neg (NEG) Urine Bilirubin Neg (NEG) Urine Urobilinogen Dipstick 0.2 mg/dL (0.2 mg/dL) Urine Leukocyte Esterase Neg (NEG) Urine RBC Occ /HPF (0-2) Urine WBC 1-4 /HPF (0-4) Urine Squamous Epithelial Cells Mod /LPF Urine Bacteria 0 /HPF (0-FEW) Glucose (Fingerstick) 218 mg/dL (70-99) Test 07/14/16 23:15 07/15/16 05:58 07/15/16 07:08 Troponin I Quantitative 0.035 ng/mL (0-0.055) 0.032 ng/mL (0-0.055) White Blood Count 7.2 x10^3/uL (4.0-11.0) Red Blood Count 4.24 x10^6/uL (3.50-5.40) Hemoglobin 10.8 g/dL (12.0-15.5) Hematocrit 32.5 % (36.0-47.0) Mean Corpuscular Volume 77 fL (79-100) Mean Corpuscular Hemoglobin 25 pg (25-35) Mean Corpuscular Hemoglobin Concent 33 g/dL (31-37) Red Cell Distribution Width 20.7 % (11.5-14.5) Platelet Count 218 x10^3/uL (140-400) Neutrophils (%) (Auto) 67 % (31-73) Lymphocytes (%) (Auto) 14 % (24-48) Monocytes (%) (Auto) 13 % (0-9) Eosinophils (%) (Auto) 5 % (0-3) Basophils (%) (Auto) 1 % (0-3) Neutrophils # (Auto) 4.8 x10^3uL (1.8-7.7) Lymphocytes # (Auto) 1.0 x10^3/uL (1.0-4.8) Monocytes # (Auto) 0.9 x10^3/uL (0.0-1.1) Eosinophils # (Auto) 0.4 x10^3/uL (0.0-0.7) Basophils # (Auto) 0.0 x10^3/uL (0.0-0.2) Sodium Level 141 mmol/L (136-145) Potassium Level 2.9 mmol/L (3.5-5.1) Chloride Level 102 mmol/L (98-107) Carbon Dioxide Level 26 mmol/L (21-32) Anion Gap 13 (6-14) Blood Urea Nitrogen 6 mg/dL (7-20) Creatinine 0.7 mg/dL (0.6-1.0) Estimated GFR (Cockcroft-Gault) 101.0 BUN/Creatinine Ratio 9 (6-20) Glucose Level 185 mg/dL (70-99) Calcium Level 9.1 mg/dL (8.5-10.1) Magnesium Level 1.9 mg/dL (1.8-2.4) Total Bilirubin 0.7 mg/dL (0.2-1.0) Aspartate Amino Transf (AST/SGOT) 17 U/L (15-37) Alanine Aminotransferase (ALT/SGPT) 16 U/L (14-59) Alkaline Phosphatase 60 U/L (46-116) Total Protein 8.1 g/dL (6.4-8.2) Albumin 4.0 g/dL (3.4-5.0) Albumin/Globulin Ratio 1.0 (1.0-1.7) Glucose (Fingerstick) 188 mg/dL (70-99) Images CXR - Impression: Mild congestive changes CTA - IMPRESSION No pulmonary embolism. Enlarged main pulmonary trunk and right and left main pulmonary arteries. This may be seen with pulmonary arterial hypertension. Cardiomegaly with small pericardial effusion. Small right-sided pleural effusion. Ground-glass lung infiltrates bilaterally which may represent pulmonary edema or atelectasis. Mediastinal lymph nodes. Clinical significance of these lymph nodes is uncertain. If clinically indicated, follow-up chest CT with IV contrast in 6 months may be helpful to ensure stability. Lower ext US Impression: No evidence of deep venous thrombosis identified in the visualized bilateral lower extremity venous system. EKG - sinus rhythm, ILBBB, PACs, non specific abnormalities Assessment/Plan 1. Chest pain - atypical, likely GI, GI coctail and PPI 2. new dyspnea on exertion with mild congestion on CXR- IV lasix given, monitor I/0 and daily weights. await echo. 3. mild troponin elevation in the indeterminate range - [place] ruled out. continue beta joe, asa. 4. accelerated hypertension - on multiple meds. consider renal duplex for BEAU. 5. hyperlipidemia - check lipids 6. diabetes mellitus - mgmt per PCP 7. hypokalemia - likely secondary to diarrhea, replace and repeat. Resume home medications, check lipids, replace potassium. Consider addition of diuretic if bp remains elevated on home meds. Hydralazine PRN. await echo, MPI vs cath depending on echo results. Problems: FATUMA MALLOY APRN July 15, 2016 10:41
[2016-07-15] MEDS ORDERED: ALBUTEROL SULFATE 2.5 MG/3 ML NEBU. NEB PRN (10:45)
[2016-07-15] MEDS: INSULIN ASPART 300 UNITS/3 ML INSULN.PEN SQ SCH ×2 (11:30→16:54)
[2016-07-15] MEDS ORDERED: INSULIN ASPART 20 UNIT SQ SCH (12:30)
--- NOTE | 2016-07-15 12:44 | HP ---
ADMIT DATE: 07/14/2016 REASON FOR ADMISSION: Chest pain. HISTORY OF PRESENT ILLNESS: This is a 66-year-old -Chinese female, who had several things happened yesterday. She drank a couple of cups of coffee and because she had some insomnia and she had some really bad abdominal pain after that. She has had several stools. I believe she has had 7 stools since then. Also, the patient has had some progressive shortness of breath with exertion and has not been sleeping well and has had to sleep in a chair. She has also been a little bit nauseated. She reports the shortness of breath ongoing for the last few weeks. PAST MEDICAL HISTORY: The patient had right knee replacement on 04/02/2016. She then went to rehabilitation. She had pneumonia while she was in rehab. Other problems include obstructive sleep apnea. She does use a CPAP, hypertension, and diabetes. MEDICATIONS: Reviewed and corrected on the APR once we had them. ALLERGIES: No known allergies. FAMILY HISTORY: Positive for hypertension. One brother at 65 of heart problems. SOCIAL HISTORY: The patient is . Quit smoking 25 years ago. Denies alcohol. REVIEW OF SYSTEMS: Negative for cough. Negative for fever. Positive for swelling in her legs. Positive for shortness of breath on exertion and orthopnea with sleeping in care. OBJECTIVE: VITAL SIGNS: Blood pressure is 184/80, pulse 101, pulse ox 95% on room air, temperature is 98.5, height 63 inches, weight 257.12 pounds. GENERAL: A 66-year-old, who is not in distress at rest. HEENT: Her hearing is normal. Her eyes are clear. Nose is patent. Throat was clear. Tongue was moist. NECK: Supple. LUNGS: Clear to auscultation. CARDIOVASCULAR: Regular rhythm and rate, mildly tachycardic. ABDOMEN: Soft, mildly midepigastric tenderness. EXTREMITIES: With 2+ edema. LABORATORY DATA: Positive D-dimer of 2.85. Chemistry: Her potassium this morning is 2.9. Troponin 0.035 and 0.032. CBC: Hemoglobin 10.8, hematocrit 32.5. IMAGING: CT of the chest shows no pulmonary embolism, but enlarged pulmonary artery trunks right and left, cardiomegaly with a small pericardial effusion, ground-glass lung infiltrates consistent with pulmonary edema or atelectasis. She has some mediastinal lymph nodes. ASSESSMENT: 1. Dyspnea on exertion. 2. Evidence of pulmonary hypertension. 3. Uncontrolled hypertension, on 3 medications. 4. Hypokalemia. 5. Type 2 diabetes. 6. Microcytic anemia. 7. DVT prophylaxis. 8. Obstructive sleep apnea. PLAN: We will be checking an echo, replace her potassium, and then may add in a diuretic. She will need to see a jewelry casting model maker apprentice. We will also check a renal ultrasound because of the multiple medications she is on and she is not on, will need a follow up with a jewelry casting model maker apprentice. We may also do a 6-minute stress test today to see if she needs home oxygen. WESLEY CARRIZALES DO DR: CHRISTIAN/santana JOB#: [id number] / [id number]
[2016-07-15 15:09] LABS: CALCIUM 9.5 mg/dL (8.5-10.1); CREATININE 0.8 mg/dL (0.6-1.0); GFR 86.6; POTASSIUM 3.8 mmol/L (3.5-5.1)
[2016-07-15] MEDS: ALBUTEROL SULFATE 2.5 MG/3 ML NEBU. NEB SCH ×2 (15:31→20:33)
--- NOTE | 2016-07-15 15:43 | CARD ---
APPROVED REPORT EXAM: Two-dimensional and M-mode echocardiogram with Doppler and color Doppler. Other Information Quality : GoodHR: 93bpm Rhythm : NSR INDICATION Chest Pain PHTN RISK FACTORS Obesity 2D DIMENSIONS RVDd2.9 (2.9-3.5cm)Left Atrium(2D)4.7 (1.6-4.0cm) IVSd1.4 (0.7-1.1cm)Aortic Root(2D)2.8 (2.0-3.7cm) LVDd4.9 (3.9-5.9cm)LVOT Diameter2.3 (1.8-2.4cm) PWd1.3 (0.7-1.1cm)LVDs3.1 (2.5-4.0cm) FS (%) 36.2 %SV74.5 ml LVEF(%)65.6 (>50%) Aortic Valve AoV Peak Kevin.188.0cm/sAoV VTI35.2cm AO Peak GR.14.1mmHgLVOT Peak Kevin.105.7cm/s LVOT VTI 24.77cmAO Mean GR.7mmHg LATISHA (VMAX)2.04kr0MBS (VTI)2.92cm2 Mitral Valve MV E Wuqenxno417.1cm/sMV E Peak Gr.10mmHg MV DECEL [id number] A Fqnqscsu999.7cm/s MV E Mean Gr.6mmHgE/A Ratio1.2 MV A [id number] Tricuspid Valve TR P. Gwbobqpz942um/sTR Peak Gr.54mmHg Pulmonary Vein S1 Ltkumzfz97.1cm/sD2 Reijjzgl00.1cm/s LEFT VENTRICLE The left ventricle is normal size. There is moderate concentric left ventricular hypertrophy. The lef t ventricular systolic function is normal. The Ejection Fraction is 60-65%. There is normal LV segmen carissa wall motion. RIGHT VENTRICLE The right ventricle is normal size. There is normal right ventricular wall thickness. The right ventr icular systolic function is normal. ATRIA The left atrium is moderately dilated. The right atrium size is normal. The interatrial septum is int act with no evidence for an atrial septal defect or patent foramen ovale as noted on 2-D or Doppler i maging. AORTIC VALVE The aortic valve is normal in structure and function. The aortic valve is probably bicuspid. Doppler and Color Flow revealed no significant aortic regurgitation. There is no significant aortic valvular stenosis. MITRAL VALVE The mitral valve is normal in structure and function. There is no evidence of mitral valve prolapse. There is no mitral valve stenosis. Doppler and Color Flow revealed mild mitral regurgitation. TRICUSPID VALVE Doppler and Color Flow revealed moderate tricuspid regurgitation. The pulmonary artery systolic press ure is estimated at 58 mmHg. There is moderate pulmonary hypertension. PULMONIC VALVE Doppler and Color Flow revealed no pulmonic valvular regurgitation. There is no pulmonic valvular jem nosis. GREAT VESSELS The aortic root is normal in size. The ascending aorta is normal in size. The pulmonary artery is nor mal. The IVC is dilated and collapses <50% with inspiration. PERICARDIAL EFFUSION There is a small circumferential pericardial effusion. Critical Notification Critical Value: No <Conclusion> The left ventricular systolic function is normal. The Ejection Fraction is 60-65%. There is normal LV segmental wall motion. The left atrium is moderately dilated. Mild mitral regurgitation. Moderate tricuspid regurgitation. The pulmonary artery systolic pressure is estimated at 58 mmHg. There is moderate pulmonary hypertension. There is a small circumferential pericardial effusion.
--- NOTE | 2016-07-15 16:56 | RAD ---
Examination: Ultrasound renal duplex History: History of uncontrolled hypertension Comparison: None available Findings: The velocity in the aorta is 81 cm/s. The velocity in the mid right renal artery is 152 cm/s, distal right renal artery 75 cm/s. The velocity in the distal left renal artery is 46 cm/s. The proximal right renal artery, proximal and mid left renal artery are not visualized. The right renal artery to aorta velocity ratio is 1.8. The left renal artery to aorta velocity ratio 0.5 The right kidney measures 12 cm in length. The left kidney measures 12 cm in length. There is a cystic structure identified in the left kidney measuring 4.0 cm. Echogenic appearing right and left kidneys. Impression: 1. Limited evaluation as bowel gas obscures right and left renal arteries. On the visualized exam, no evidence of hemodynamically significant stenosis identified. 2 . 4 cm cystic structure identified in the left kidney probably a cyst. 3. The right and left kidneys appear echogenic. Correlate with medical renal disease.
[2016-07-15] MEDS ORDERED: CARVEDILOL 25 MG TABLET PO SCH (17:00)
[2016-07-15] MEDS ORDERED: PRENATAL MULTIVITAMIN TABLET. PO SCH (17:15)
[2016-07-15] MEDS: BUDESONIDE 0.5 MG/2 ML NEBU NEB SCH (20:00)
[2016-07-15] MEDS ORDERED: INSULIN DETEMIR 300 UNITS/3 ML INSULN.PEN. SQ SCH (21:00)
[2016-07-15] MEDS ORDERED: NON FORMULARY ITEM (Fluticasone/Salmeterol (Advair 250-50 Diskus) 1 EACH) IH SCH (21:00)
[2016-07-15] MEDS ORDERED: cloNIDine HCL 0.2 MG TABLET PO SCH (21:00)
[2016-07-15] MEDS ORDERED: ATORVASTATIN CALCIUM 10 MG TABLET. PO SCH (21:00)
[2016-07-15] MEDS ORDERED: CETIRIZINE HCL 10 MG TABLET PO SCH (21:00)
[2016-07-15] MEDS ORDERED: MONTELUKAST 10 MG TABLET. PO SCH (21:00)
[2016-07-15] MEDS ORDERED: KETOROLAC 15 MG/ML VIAL. IV PRN (23:15)
[2016-07-16 05:00] VITALS: BP 147/79
[2016-07-16] MEDS: ALBUTEROL SULFATE 2.5 MG/3 ML NEBU. NEB SCH ×2 (05:54→09:48)
[2016-07-16 06:20] LABS: HEMATOCRIT 28.6 % (36.0-47.0); HEMOGLOBIN 9.6 g/dL (12.0-15.5); RED BLOOD COUNT 3.73 x10^6/uL (3.50-5.40); RED CELL DISTRIBUTION WIDTH 20.4 % (11.5-14.5); WHITE BLOOD COUNT 5.3 x10^3/uL (4.0-11.0)
[2016-07-16 06:31] LABS: ALBUMIN 3.3 g/dL (3.4-5.0); ALBUMIN/GLOBULIN RATIO 0.9 (1.0-1.7); CALCIUM 9.1 mg/dL (8.5-10.1); CREATININE 1.1 mg/dL (0.6-1.0); GFR 59.9; POTASSIUM 3.2 mmol/L (3.5-5.1); TOTAL BILIRUBIN 0.6 mg/dL (0.2-1.0); TOTAL PROTEIN 6.9 g/dL (6.4-8.2)
[2016-07-16] MEDS: PANTOPRAZOLE 40 MG TABLET. PO SCH (08:20)
[2016-07-16] MEDS: LOSARTAN 50 MG TABLET. PO SCH (08:20)
[2016-07-16] MEDS: CARVEDILOL 25 MG TABLET PO SCH (08:20)
[2016-07-16] MEDS: cloNIDine HCL 0.2 MG TABLET PO SCH (08:21)
[2016-07-16] MEDS: amLODIPine BESYLATE 10 MG TABLET PO SCH (08:21)
[2016-07-16] MEDS: ACYCLOVIR 200 MG CAPSULE PO SCH (08:21)
[2016-07-16] MEDS: metFORMIN XR 500 MG TAB.ER.24H PO SCH (08:22)
[2016-07-16] MEDS: INSULIN ASPART 300 UNITS/3 ML INSULN.PEN SQ SCH ×2 (08:31→12:23)
[2016-07-16] MEDS ORDERED: INSULIN DETEMIR 300 UNITS/3 ML INSULN.PEN. SQ SCH ×2 (09:00→21:00)
[2016-07-16] MEDS ORDERED: FLUTICASONE 50MCG/NASAL SPRAY 16GM BOTTLE. NS SCH (09:00)
[2016-07-16] MEDS ORDERED: DULoxetine HCL 30 MG CAPSULE.DR PO SCH (09:00)
[2016-07-16] MEDS ORDERED: LISINOPRIL 10 MG TABLET PO SCH (09:00)
[2016-07-16] MEDS: POTASSIUM CHLORIDE 20 MEQ TABLET.ER. PO SCH ×2 (09:13→12:21)
--- NOTE | 2016-07-16 09:22 | PDOC ---
PROGRESS NOTES Diagnosis Problem Problems Medical Problems: (1) Chest pain Status: Acute (2) CHF (congestive heart failure) Status: Acute Assessment Problems Medical Problems: (1) Chest pain Status: Acute (2) CHF (congestive heart failure) Status: Acute 1. chest pain, atypical - DC ruled out, troponin elevation remained indeterminate range. LVEF normal. Consider outpatient GI eval. Continue risk factor reduction and re-evaluate in follow up in 6 weeks. August 27, 2016 at 2 pm. 2. accelerated hypertension - blood pressure improved. add Aldactone with BMP after 1 week. Change to Paty in place of amlodipine and valsartan to increase compliance at discharge. Change change clonidine to Catapres patch for improved coverage and to avoid rebound effect. 3. pulmonary hypertension - continue CPAP with auto titrate settings, suggest PFTs and referral for pulmonary evaluation. 4. small pericardial effusion - limited echo in 6 weeks 5. hyperlipidemia - statin 6. diabetes mellitus - per PCP 7. hypokalemia - add aldactone, check chemistry in 1 week 8. GLORIA - CPAP, continue auto titrate setting 9. PAT - short bursts, up to 6 seconds. Outpatient event monitor. OK CV clemons for discharge. POC discussed with Dr Corrales. Problems: Subjective feeling better, chest pain resolved, ambulated without problems, edema improving , blood pressure improved. Objective tele - sinus rhythm, short salvos of PAT, longest 6 seconds Vital Signs Date Time Temp Pulse Resp B/P (MAP) Pulse Ox O2 Delivery O2 Flow Rate FiO2 07/16/16 08:21 86 07/16/16 08:00 Room Air 07/16/16 05:54 96 07/16/16 05:00 98.0 20 147/79 (101) Intake and Output 07/16/16 07:00 Intake Total 940 ml Output Total 450 ml Balance 490 ml Intake Oral 940 ml Output Urine Total 450 ml Abdomen: Normal bowel sounds, Soft, No tenderness Heart: Regular rate, Normal S1, Normal S2, Other (no gallops, clicks or rubs) Extremities: No cyanosis, Normal pulses, Other (trace to 1+ edema) General: Alert, Oriented X3, Cooperative, No acute distress HEENT: Atraumatic, EOMI, Mucous membr. moist/pink Lungs: Clear to auscultation Neuro: Normal speech, Strength at 5/5 X4 ext Psych/Mental Status: Mental status NL, Mood NL Review of Relevant I have reviewed the following items jared (where applicable) has been applied. Labs Laboratory Tests Test 07/14/16 16:00 07/14/16 16:08 07/14/16 16:10 07/14/16 21:14 White Blood Count 6.8 x10^3/uL (4.0-11.0) Red Blood Count 4.45 x10^6/uL (3.50-5.40) Hemoglobin 11.2 g/dL (12.0-15.5) Hematocrit 34.1 % (36.0-47.0) Mean Corpuscular Volume 77 fL (79-100) Mean Corpuscular Hemoglobin 25 pg (25-35) Mean Corpuscular Hemoglobin Concent 33 g/dL (31-37) Red Cell Distribution Width 20.6 % (11.5-14.5) Platelet Count 218 x10^3/uL (140-400) Neutrophils (%) (Auto) 73 % (31-73) Lymphocytes (%) (Auto) 12 % (24-48) Monocytes (%) (Auto) 10 % (0-9) Eosinophils (%) (Auto) 5 % (0-3) Basophils (%) (Auto) 1 % (0-3) Neutrophils # (Auto) 5.0 x10^3uL (1.8-7.7) Lymphocytes # (Auto) 0.8 x10^3/uL (1.0-4.8) Monocytes # (Auto) 0.7 x10^3/uL (0.0-1.1) Eosinophils # (Auto) 0.3 x10^3/uL (0.0-0.7) Basophils # (Auto) 0.0 x10^3/uL (0.0-0.2) Platelet Estimate Adequate (ADEQUATE) Polychromasia Present Anisocytosis Mod Microcytosis Slight Iron Level 42 ug/dL (50-170) Total Iron Binding Capacity 245 ug/dL (250-450) Iron Saturation 17 % (15-34) Thyroid Stimulating Hormone (TSH) 2.178 uIU/mL (0.358-3.740) D-Dimer (Amy) 2.85 mg/L (0.00-0.50) Sodium Level 143 mmol/L (136-145) Potassium Level 3.1 mmol/L (3.5-5.1) Chloride Level 104 mmol/L (98-107) Carbon Dioxide Level 30 mmol/L (21-32) Anion Gap 9 (6-14) Blood Urea Nitrogen 8 mg/dL (7-20) Creatinine 0.7 mg/dL (0.6-1.0) Estimated GFR (Cockcroft-Gault) 101.0 BUN/Creatinine Ratio 11 (6-20) Glucose Level 177 mg/dL (70-99) Calcium Level 9.3 mg/dL (8.5-10.1) Magnesium Level 1.7 mg/dL (1.8-2.4) Total Bilirubin 0.7 mg/dL (0.2-1.0) Aspartate Amino Transf (AST/SGOT) 15 U/L (15-37) Alanine Aminotransferase (ALT/SGPT) 16 U/L (14-59) Alkaline Phosphatase 62 U/L (46-116) Creatine Kinase 50 U/L (26-192) Creatine Kinase MB (Mass) 0.7 ng/mL (0.0-3.6) Creatine Kinase MB Relative Index 1.4 % (0-4) Troponin I Quantitative 0.030 ng/mL (0-0.055) OE-Sbl-X-Type Natriuretic Peptide 623 pg/mL (0-124) Total Protein 8.3 g/dL (6.4-8.2) Albumin 4.1 g/dL (3.4-5.0) Albumin/Globulin Ratio 1.0 (1.0-1.7) Lipase 131 U/L (73-393) Urine Collection Type Unknown Urine Color Straw Urine Clarity Clear Urine pH 7.5 Urine Specific [place] 1.015 Urine Protein 100 mg/dl (NEG-TRACE) Urine Glucose (UA) Neg mg/dL (NEG) Urine Ketones (Stick) Neg mg/dL (NEG) Urine Blood Trace (NEG) Urine Nitrite Neg (NEG) Urine Bilirubin Neg (NEG) Urine Urobilinogen Dipstick 0.2 mg/dL (0.2 mg/dL) Urine Leukocyte Esterase Neg (NEG) Urine RBC Occ /HPF (0-2) Urine WBC 1-4 /HPF (0-4) Urine Squamous Epithelial Cells Mod /LPF Urine Bacteria 0 /HPF (0-FEW) Glucose (Fingerstick) 218 mg/dL (70-99) Test 07/14/16 23:15 07/15/16 05:58 07/15/16 07:08 07/15/16 11:08 Troponin I Quantitative 0.035 ng/mL (0-0.055) 0.032 ng/mL (0-0.055) White Blood Count 7.2 x10^3/uL (4.0-11.0) Red Blood Count 4.24 x10^6/uL (3.50-5.40) Hemoglobin 10.8 g/dL (12.0-15.5) Hematocrit 32.5 % (36.0-47.0) Mean Corpuscular Volume 77 fL (79-100) Mean Corpuscular Hemoglobin 25 pg (25-35) Mean Corpuscular Hemoglobin Concent 33 g/dL (31-37) Red Cell Distribution Width 20.7 % (11.5-14.5) Platelet Count 218 x10^3/uL (140-400) Neutrophils (%) (Auto) 67 % (31-73) Lymphocytes (%) (Auto) 14 % (24-48) Monocytes (%) (Auto) 13 % (0-9) Eosinophils (%) (Auto) 5 % (0-3) Basophils (%) (Auto) 1 % (0-3) Neutrophils # (Auto) 4.8 x10^3uL (1.8-7.7) Lymphocytes # (Auto) 1.0 x10^3/uL (1.0-4.8) Monocytes # (Auto) 0.9 x10^3/uL (0.0-1.1) Eosinophils # (Auto) 0.4 x10^3/uL (0.0-0.7) Basophils # (Auto) 0.0 x10^3/uL (0.0-0.2) Sodium Level 141 mmol/L (136-145) Potassium Level 2.9 mmol/L (3.5-5.1) Chloride Level 102 mmol/L (98-107) Carbon Dioxide Level 26 mmol/L (21-32) Anion Gap 13 (6-14) Blood Urea Nitrogen 6 mg/dL (7-20) Creatinine 0.7 mg/dL (0.6-1.0) Estimated GFR (Cockcroft-Gault) 101.0 BUN/Creatinine Ratio 9 (6-20) Glucose Level 185 mg/dL (70-99) Calcium Level 9.1 mg/dL (8.5-10.1) Magnesium Level 1.9 mg/dL (1.8-2.4) Total Bilirubin 0.7 mg/dL (0.2-1.0) Aspartate Amino Transf (AST/SGOT) 17 U/L (15-37) Alanine Aminotransferase (ALT/SGPT) 16 U/L (14-59) Alkaline Phosphatase 60 U/L (46-116) Total Protein 8.1 g/dL (6.4-8.2) Albumin 4.0 g/dL (3.4-5.0) Albumin/Globulin Ratio 1.0 (1.0-1.7) Glucose (Fingerstick) 188 mg/dL (70-99) 202 mg/dL (70-99) Test 07/15/16 14:55 07/15/16 16:25 07/15/16 20:36 07/16/16 05:37 Sodium Level 140 mmol/L (136-145) 142 mmol/L (136-145) Potassium Level 3.8 mmol/L (3.5-5.1) 3.2 mmol/L (3.5-5.1) Chloride Level 102 mmol/L (98-107) 105 mmol/L (98-107) Carbon Dioxide Level 29 mmol/L (21-32) 31 mmol/L (21-32) Anion Gap 9 (6-14) 6 (6-14) Blood Urea Nitrogen 6 mg/dL (7-20) 11 mg/dL (7-20) Creatinine 0.8 mg/dL (0.6-1.0) 1.1 mg/dL (0.6-1.0) Estimated GFR (Cockcroft-Gault) 86.6 59.9 Glucose Level 206 mg/dL (70-99) 95 mg/dL (70-99) Calcium Level 9.5 mg/dL (8.5-10.1) 9.1 mg/dL (8.5-10.1) Glucose (Fingerstick) 196 mg/dL (70-99) 143 mg/dL (70-99) White Blood Count 5.3 x10^3/uL (4.0-11.0) Red Blood Count 3.73 x10^6/uL (3.50-5.40) Hemoglobin 9.6 g/dL (12.0-15.5) Hematocrit 28.6 % (36.0-47.0) Mean Corpuscular Volume 77 fL (79-100) Mean Corpuscular Hemoglobin 26 pg (25-35) Mean Corpuscular Hemoglobin Concent 34 g/dL (31-37) Red Cell Distribution Width 20.4 % (11.5-14.5) Platelet Count 189 x10^3/uL (140-400) BUN/Creatinine Ratio 10 (6-20) Magnesium Level 2.0 mg/dL (1.8-2.4) Total Bilirubin 0.6 mg/dL (0.2-1.0) Aspartate Amino Transf (AST/SGOT) 13 U/L (15-37) Alanine Aminotransferase (ALT/SGPT) 12 U/L (14-59) Alkaline Phosphatase 46 U/L (46-116) Total Protein 6.9 g/dL (6.4-8.2) Albumin 3.3 g/dL (3.4-5.0) Albumin/Globulin Ratio 0.9 (1.0-1.7) Medications Current Medications Aspirin (Children'S Aspirin) 324 mg 1X ONCE PO Last administered on 07/14/16 16:40; Start 07/14/16 at 16:30; Stop 07/14/16 at 16:31; Status DC Hydromorphone HCl (Dilaudid) 0.5 mg 1X ONCE IV Last administered on 07/14/16 17:29; Start 07/14/16 at 16:30; Stop 07/14/16 at 16:31; Status DC Sodium Chloride 1,000 ml @ 1,000 mls/hr Q1H IV Last administered on 07/14/16 17:29; Start 07/14/16 at 15:56; Stop 07/14/16 at 16:55; Status DC Sodium Chloride (Normal Saline Flush) 10 ml QSHIFT PRN IV AFTER MEDS AND BLOOD DRAWS; Start 07/14/16 at 16:00 Iohexol (Omnipaque 300 Mg/ml) 75 ml 1X ONCE IV Last administered on 07/14/16 16:43; Start 07/14/16 at 16:30; Stop 07/14/16 at 16:31; Status DC Furosemide (Lasix) 40 mg 1X ONCE IVP Last administered on 07/14/16 19:47; Start 07/14/16 at 18:30; Stop 07/14/16 at 18:31; Status DC Ondansetron HCl (Zofran) 4 mg PRN Q4HRS PRN IV NAUSEA/VOMITING; Start 07/14/16 at 18:15; Stop 07/15/16 at 18:14; Status DC Fentanyl Citrate (Fentanyl 2ml Vial) 50 mcg PRN Q2HR PRN IV PAIN; Start at 18:15; Stop 07/15/16 at 18:14; Status DC Acetaminophen (Tylenol) 650 mg PRN Q4HRS PRN PO FEVER; Start 07/14/16 at 18:15 ; Stop 07/15/16 at 18:14; Status DC Magnesium Sulfate 50 ml @ 25 mls/hr 1X ONCE IV Last administered on 07/14/16 19:46; Start 07/14/16 at 19:30; Stop 07/14/16 at 21:29; Status DC Potassium Chloride (Klor-Con) 20 meq 1X ONCE PO Last administered on 19:46; Start 07/14/16 at 19:30; Stop 07/14/16 at 19:31; Status DC Ketorolac Tromethamine (Toradol) 15 mg Q6HRS PRN IV PAIN Last administered on 11:46; Start 07/14/16 at 19:30; Stop 07/15/16 at 23:03; Status DC Potassium Chloride (Klor-Con) 40 meq 1X ONCE PO ; Start 07/15/16 at 08:45; Stop 07/15/16 at 09:21; Status DC Amlodipine Besylate (Norvasc) 10 mg DAILY PO Last administered on 07/16/16 08: 21; Start 07/15/16 at 10:15 Carvedilol (Coreg) 25 mg BIDWMEALS PO ; Start 07/15/16 at 17:00; Stop 07/15/16 at 17:00; Status DC Cetirizine HCl (Zyrtec) 10 mg DAILY PO ; Start 07/15/16 at 10:15; Stop 07/15/16 at 10:18; Status DC Clonidine HCl (Catapres) 0.2 mg BID PO ; Start 07/15/16 at 21:00; Stop 07/15/16 at 21:00; Status DC Metformin HCl (Glucophage Xr) 500 mg BID PO Last administered on 07/16/16 08: 22; Start 07/15/16 at 09:00 Montelukast Sodium (Singulair) 10 mg HS PO Last administered on 07/15/16 21:46 ; Start 07/15/16 at 21:00 Atorvastatin Calcium (Lipitor) 10 mg QHS PO Last administered on 07/15/16 21: 45; Start 07/15/16 at 21:00 Non-Formulary Medication 20 unit TIDPC SQ ; Start 07/15/16 at 12:30; Stop at 12:30; Status DC Insulin Detemir (Levemir) 65 units BID SQ Last administered on 07/15/16 21:47 ; Start 07/15/16 at 21:00; Stop 07/15/16 at 22:52; Status DC Lisinopril (Prinivil) 10 mg DAILY PO ; Start 07/16/16 at 09:00; Stop 07/16/16 at 09:00; Status DC Hydralazine HCl (Apresoline) 10 mg PRN Q4HRS PRN IV ELEVATED BP, SEE COMMENTS; Start 07/15/16 at 09:15 Pantoprazole Sodium (Protonix) 40 mg DAILYAC PO Last administered on 07/16/16 08:20; Start 07/15/16 at 09:30 Multi-Ingredient Mouthwash/Gargle (Gi Cocktail) 20 ml 1X ONCE PO Last administered on 07/15/16 10:39; Start 07/15/16 at 10:15; Stop 07/15/16 at 10:16 ; Status DC Potassium Chloride 50 ml @ 0 mls/hr Q1H IV Last administered on 07/15/16 13:16 ; Start 07/15/16 at 09:30; Stop 07/15/16 at 12:31; Status DC Albuterol Sulfate (Ventolin Hfa) 1 puff Q4HRS PRN INH COMM; Start 07/15/16 at 09:30; Stop 07/15/16 at 10:42; Status DC Aspirin (Children'S Aspirin) 81 mg DAILY PO ; Start 07/15/16 at 10:15; Stop at 10:18; Status DC Duloxetine HCl (Cymbalta) 30 mg DAILY PO Last administered on 07/16/16 08:21; Start 07/16/16 at 09:00 Fluticasone Propionate (Flonase) 1 spray DAILY NS ; Start 07/16/16 at 09:00 Insulin Aspart (Novolog) 20 units TIDAC SQ Last administered on 07/16/16 08:31 ; Start 07/15/16 at 11:30 Lidocaine (Lidoderm) 3 patch DAILY10 TP ; Start 07/15/16 at 10:15; Stop at 10:18; Status DC Acyclovir (Zovirax) 400 mg DAILY PO Last administered on 07/16/16 08:21; Start 07/15/16 at 10:15 Non-Formulary Medication 1 each BID IH ; Start 07/15/16 at 21:00; Stop 07/15/16 at 21:00; Status DC Losartan Potassium (Cozaar) 100 mg DAILY PO Last administered on 07/16/16 08: 20; Start 07/15/16 at 10:45 Aspirin (Children'S Aspirin) 81 mg HS PO Last administered on 07/15/16 21:46; Start 07/15/16 at 21:00 Carvedilol (Coreg) 25 mg BIDWMEALS PO Last administered on 07/16/16 08:20; Start 07/15/16 at 10:45 Cetirizine HCl (Zyrtec) 10 mg HS PO Last administered on 07/15/16 21:47; Start 07/15/16 at 21:00 Clonidine HCl (Catapres) 0.2 mg BID PO Last administered on 07/16/16 08:21; Start 07/15/16 at 10:30 Lidocaine (Lidoderm) 3 patch PRN DAILY PRN TP pain; Start 07/15/16 at 10:15 Albuterol Sulfate (Ventolin) 2.5 mg RTQID NEB Last administered on 07/16/16 05 :54; Start 07/15/16 at 12:00 Budesonide (Pulmicort) 0.5 mg RTBID NEB ; Start 07/15/16 at 20:00 Albuterol Sulfate (Ventolin) 2.5 mg PRN Q4HRS PRN NEB SHORTNESS OF BREATH; Start 07/15/16 at 10:45 Prenat Multivit/ [place]/Iron/Folic Ac (Multivitamin ) 1 tab DAILYBFRSUP PO Last administered on 07/15/16t 17:15; Start 07/15/16 at 17:15 Insulin Detemir (Levemir) 50 units BID SQ ; Start 07/16/16 at 09:00; Stop at 09:07; Status DC Ketorolac Tromethamine (Toradol) 15 mg PRN Q6HRS PRN IV MODERATE PAIN; Start at 23:15; Stop 07/19/16 at 19:29 Potassium Chloride (Klor-Con) 20 meq BID92 PO Last administered on 07/16/16 09 :13; Start 07/16/16 at 09:00 Insulin Detemir (Levemir) 50 units HS SQ ; Start 07/16/16 at 21:00 Active Scripts Active Reported Aspirin 81 Mg Tab.chew 81 Mg PO DAILY Fluticasone Propionate Nasal Lynx (Fluticasone Propionate) 16 Gm Lynx.susp 1 Lynx NS DAILY Diovan (Valsartan) 320 Mg Tablet 320 Mg PO DAILY Advair 250-50 Diskus (Fluticasone/Salmeterol) 1 Each Disk.w.dev 1 Each IH BID Cymbalta (Duloxetine Hcl) 30 Mg Capsule.dr 30 Mg PO DAILY Proair Hfa Inhaler (Albuterol Sulfate) 8.5 Gm Hfa.aer.ad 1 Puff INH Q4HRS PRN Acyclovir 400 Mg Tablet 400 Mg PO DAILY Novolog Flexpen (Insulin Aspart) 100 Unit/1 Ml Insuln.pen 20 Unit SQ TIDAC Lidocaine 1 Each Adh..patch 3 Each TP Zocor (Simvastatin) 20 Mg Tablet 20 Mg PO HS LAST DOSE GIVEN: DATE: TIME: NEXT DOSE DUE: DATE: TIME: Norvasc (Amlodipine Besylate) 5 Mg Tablet 10 Mg PO DAILY LAST DOSE GIVEN: DATE: TIME: NEXT DOSE DUE: DATE: TIME: Clonidine Hcl 0.1 Mg Tablet 0.2 Mg PO BID LAST DOSE GIVEN: DATE: TIME: NEXT DOSE DUE: DATE: TIME: Coreg (Carvedilol) 12.5 Mg Tablet 25 Mg PO BIDWMEALS LAST DOSE GIVEN: DATE: TIME: NEXT DOSE DUE: DATE: TIME: Novolog (Insulin Aspart) 100 Unit/1 Ml Vial 20 Unit SQ TIDPC LAST DOSE GIVEN: DATE: TIME: NEXT DOSE DUE: DATE: TIME: Lantus Solostar (Insulin Glargine,Hum.rec.anlog) 100 Unit/1 Ml Insuln.pen 50 Unit SQ BID LAST DOSE GIVEN: DATE: TIME: NEXT DOSE DUE: DATE: TIME: Zyrtec (Cetirizine Hcl) 10 Mg Tablet 10 Mg PO DAILY LAST DOSE GIVEN: DATE: TIME: NEXT DOSE DUE: DATE: TIME: Montelukast Sodium Tablet (Montelukast Sodium) 10 Mg Tablet 10 Mg PO HS LAST DOSE GIVEN: DATE: TIME: NEXT DOSE DUE: DATE: TIME: Metformin Hcl Er (Metformin Hcl) 500 Mg Tab.er.24h 500 Mg PO BID LAST DOSE GIVEN: DATE: TIME: NEXT DOSE DUE: DATE: TIME: Vitals/I & O Vital Sign - Last 24 Hours 07/15/16 07/15/16 07/15/16 07/15/16 10:09 10:40 10:40 10:40 Pulse 101 100 100 100 B/P (MAP) 184/80 07/15/16 07/15/16 07/15/16 07/15/16 11:52 12:27 14:40 15:33 Temp 98.2 98.6 Pulse 81 80 Resp 20 20 B/P (MAP) 194/74 (114) 185/70 (108) 168/78 (108) Pulse Ox 95 94 95 O2 Delivery Room Air Room Air Room Air 07/15/16 07/15/16 07/15/16 07/15/16 16:52 18:44 20:00 20:34 Temp 98.9 Pulse 80 88 Resp 20 B/P (MAP) 168/78 134/61 (85) Pulse Ox 93 94 O2 Delivery Room Air Room Air Room Air 07/15/16 07/15/16 07/15/16 07/16/16 20:37 21:45 22:42 05:00 Temp 98.5 98.0 Pulse 88 92 85 Resp 20 20 B/P (MAP) 134/61 129/65 (86) 147/79 (101) Pulse Ox 94 93 95 O2 Delivery Room Air BiPAP/CPAP BiPAP/CPAP 07/16/16 07/16/16 07/16/16 07/16/16 05:54 08:00 08:20 08:20 Pulse 82 86 Pulse Ox 96 O2 Delivery Room Air Room Air 07/16/16 07/16/16 08:21 08:21 Pulse 86 86 Intake and Output 07/15/16 07/15/16 07/16/16 15:00 23:00 07:00 Intake Total 480 ml 460 ml 0 ml Output Total 450 ml Balance 480 ml 10 ml 0 ml 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
[2016-07-16] MEDS: BUDESONIDE 0.5 MG/2 ML NEBU NEB SCH (09:48)
[2016-07-16 10:43] VITALS: BP 111/56
[2016-07-16] MEDS ORDERED: PANT40TA5 PO (11:26)
[2016-07-16] MEDS ORDERED: CLON1PAT10 TD (11:26)
[2016-07-16] MEDS ORDERED: SPIR25TA PO (11:26)
--- NOTE | 2016-07-17 09:22 | DS ---
DATE OF DISCHARGE: 07/16/2016 DISCHARGE DIAGNOSES: 1. Chest pain -- atypical, myocardial infarction ruled out. Troponin was in the indeterminate range and was seen by Cardiology. 2. Epigastric pain, suspect gastroesophageal reflux disease, started on 30 days of Protonix. 3. Accelerated hypertension. The patient is on 3 hypertensive medications. Renal ultrasound somewhat equivocal, did have a right renal cyst, but there was some mention of echogenicity of the kidneys and will need followup with a gleason operator. 4. Mild proteinuria, will need to see a gleason operator and control hypertension. 5. Pulmonary hypertension, this is a new diagnosis, will need pulmonary evaluation and pulmonary function tests. 6. Obstructive sleep apnea, check CPAP settings. 7. Small pericardial effusion, will have a limited echo in 6 weeks. 8. Hyperlipidemia, on a statin. 9. Diabetes. 10. Hypokalemia, treated. 11. Paroxysmal atrial tachycardia, had short burst up to 6 seconds, will have an outpatient event monitor. HOSPITAL COURSE: This is a 66-year-old female who presented to the Emergency Room after drinking a couple of cups of coffee in the middle of the night where she developed several stools as well as some epigastric pain. She also had reported some progressive shortness of breath with exertion. She has not previously had a diagnosis of pulmonary hypertension but this was certainly present on her echocardiogram. She has an automatically titrated CPAP, so I am not sure if that would have anything to do with the pulmonary hypertension. Because of her elevated blood pressure and being on 3 medications, a renal ultrasound was done as well, which was not a good study, but did show some echogenicity of both kidneys suggesting kidney disease as well as a small renal cyst. These will need to be followed up. She did have some resolve of her shortness of breath with some IV Lasix. She was seen in consultation by [facility] and multiple appointments were made and followup was initiated. On the day of discharge, blood pressure was 111/56, pulse 90, respirations 20, temperature was 98 and O2 sat was 94% on room air. Admission blood pressure, she had a high of 194/74. On physical exam, still had some peripheral edema today. PLAN: Medications were changed on the APR, type written instructions given, new prescriptions also given and transmitted to [facility]. She was informed of these findings and will follow up with ____. WESLEY CARRIZALES DO DR: Adelina JOB#: [id number] / [id number] EL Garrett
== END 2016-07-16 13:27 | disposition home or self-care (01) | DRG 392 ==
LOC: ER 15:41 → 1 SOUTH 18:06
PROVIDERS: ADMIT Family Medicine; ATTEND Family Medicine
DX: K21.9 Gastro-esophageal reflux disease without esophagitis (principal); I11.0 Hypertensive heart disease with heart failure; I47.9 Paroxysmal tachycardia, unspecified; D50.9 Iron deficiency anemia, unspecified; E11.9 Type 2 diabetes mellitus without complications; E78.5 Hyperlipidemia, unspecified; E87.6 Hypokalemia; G47.00 Insomnia, unspecified; G47.33 Obstructive sleep apnea (adult) (pediatric); I25.10 Atherosclerotic heart disease of native coronary artery without angina pectoris; Z96.651 Presence of right artificial knee joint; I27.2 Other secondary pulmonary hypertension; R19.7 Diarrhea, unspecified; I50.9 Heart failure, unspecified; R06.09 Other forms of dyspnea; J44.9 Chronic obstructive pulmonary disease, unspecified; Z82.49 Family history of ischemic heart disease and other diseases of the circulatory system; Z87.891 Personal history of nicotine dependence; Z83.3 Family history of diabetes mellitus; Z87.01 Personal history of pneumonia (recurrent); Z90.49 Acquired absence of other specified parts of digestive tract; Z98.51 Tubal ligation status
CPT/HCPCS: 36415; 71020; 71275; 76770; 80048; 80053; 81001; 82553; 82947; 83540; 83550; 83690; 83735; 83880; 84443; 84484; 85008; 85027; 85379; 93005; 93306; 93970; 94640; 96361; 96374; J1170; J1815; J1885; J1940; J2405; J3475; J3480; J7613; J7626; Q9967; 99285-25; J7030

== ENCOUNTER 2020-05-01 23:03 | Emergency (ER) | payer MEDICARE, OTHER ==
[~2020-05-01] VITALS: Ht 160 cm; Wt 105.8 kg
[~2020-05-01 23:03] MED LIST: ACYC400T PO; ALBU2.5V8 INH; AMLO5TAB4 PO; ASPI-630 PO; CARV12.5 PO; CETI10TA74 PO; CLON0.1T PO; CLON1PAT10 TD; DULO30CA2 PO; FLUT16SP21 NS; FLUT1DIS3 IH; INSU100I13 SQ; INSU100I17 SQ; INSU100V31 SQ; LIDO700A21 TP; METF-658 PO; MONT10TA80 PO; PANT40TA6 PO; SIMV20TA PO; SPIR25TA PO; VALS320T2 PO
[2020-05-01 23:28] LABS: BASO % 0 % (0-3); EOS % 0 % (0-3); HEMATOCRIT 44.7 % (36.0-47.0); HEMOGLOBIN 14.2 g/dL (12.0-15.5); LYMPH # 0.6 x10^3/uL (1.0-4.8); LYMPH % 5 % (24-48); MEAN CORPUSCULAR HEMOGLOBIN 30 pg (25-35); MEAN CORPUSCULAR HGB CONC 32 g/dL (31-37); MEAN CORPUSCULAR VOLUME 94 fL (79-100); MONO # 0.7 x10^3/uL (0.0-1.1); MONO % 5 % (0-9); NEUT # 11.7 x10^3uL (1.8-7.7); NEUT % 89 % (31-73); PLATELET COUNT 444 x10^3/uL (140-400); RED BLOOD COUNT 4.74 x10^6/uL (3.50-5.40); RED CELL DISTRIBUTION WIDTH 15.7 % (11.5-14.5); WHITE BLOOD COUNT 13.1 x10^3/uL (4.0-11.0)
[2020-05-01] MEDS ORDERED: IV RINGERS SOLUTION,LACTATED 1,000 ML IV ONE (23:30)
--- NOTE | 2020-05-01 23:38 | RAD ---
EXAM: CT HEAD WITHOUT CONTRAST. HISTORY: Altered mental status. TECHNIQUE: Computed tomography of the head was performed without intravenous contrast. One or more of the following individualized dose reduction techniques were utilized for this examination: 1. Automated exposure control. 2. Adjustment of the mA and/or kV according to patient size. 3. Use of iterative reconstruction technique. COMPARISON: None. FINDINGS: There is no intracranial hemorrhage. Alba-white differentiation is preserved. The ventricle s are normal in size and position for patient age. The visualized paranasal sinuses appear clear. There are changes of bilateral cataract surgery. The t emporal bones are unremarkable. The calvarium reveals no suspicious lesions. IMPRESSION: 1. No acute intracranial findings. Electronically signed by: Jo Chou MD (05/01/2020 11:36 PM) [facility]
--- NOTE | 2020-05-01 23:45 | EKG ---
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
[2020-05-01 23:52] LABS: ALBUMIN 2.5 g/dL (3.4-5.0); ALBUMIN/GLOBULIN RATIO 0.4 (1.0-1.7); CALCIUM 9.3 mg/dL (8.5-10.1); CREATININE 2.2 mg/dL (0.6-1.0); GFR 26.7; MAGNESIUM 3.6 mg/dL (1.8-2.4); POTASSIUM 5.7 mmol/L (3.5-5.1); TOTAL BILIRUBIN 0.6 mg/dL (0.2-1.0); TOTAL PROTEIN 8.6 g/dL (6.4-8.2)
--- NOTE | 2020-05-01 23:56 | RAD ---
EXAM: CHEST ONE VIEW. HISTORY: Altered mental status, shortness of breath. COMPARISON: 07/14/2016. FINDINGS: A frontal view of the chest is obtained. Bibasilar interstitial and airspace opacities indicate mild pulmonary edema or atypical pneumonia. Th ere is no pneumothorax or clear pleural effusion. The heart is not enlarged. IMPRESSION: 1. Mild pulmonary edema versus atypical pneumonia. Electronically signed by: Jo Chou MD (05/01/2020 11:54 PM) [facility]
[2020-05-02] MEDS ORDERED: INSULIN REGULAR VIAL 100 UNIT in IV NORMAL SALINE 100ML 100 ML IV PRN (00:30)
[2020-05-02] MEDS ORDERED: IV NORMAL SALINE 100ML 100 ML ONE ×2 (00:40→00:53)
[2020-05-02] MEDS ORDERED: IV RINGERS SOLUTION,LACTATED 1,000 ML IV ONE (01:00)
[2020-05-02] MEDS ORDERED: CALCIUM GLUCONATE 1,000 MG/10 ML VIAL IV ONE (01:00)
[2020-05-02] MEDS ORDERED: FUROSEMIDE 40 MG/4 ML VIAL IVP ONE (01:00)
--- NOTE | 2020-05-02 01:19 | PHYS DOC ---
Past History Past Medical History: CAD, Diabetes Past Surgical History: Cholecystectomy, Knee Replacement, Tubal ligation Additional Past Surgical Histo: the left Smoking: Non-smoker Alcohol Use: None Drug Use: None Adult General Chief Complaint Chief Complaint: HYPERTENSION HPI HPI Patient is a 69-year-old female with a past medical history reported by family of cardiovascular disease, heart failure, and insulin-dependent diabetes who presents to the emergency department with altered mental status. Per family and EMS, patient has been laying at home over the last few days feeling unwell. States that over the last day she has become really sleepy and hard to arouse and decided to call EMS. Review of Systems Review of Systems Review of systems limited as patient confused due to critical illness. Current Medications Current Medications Current Medications Medications (Trade) Dose Ordered Sig/Abhishek Start Time Stop Time Status Last Admin Dose Admin Calcium Gluconate (Calcium Gluconate) 1,000 mg 1X ONCE 05/02/20 01:00 05/02/20 01:01 DC Fentanyl Citrate (Fentanyl 2ml Vial) 50 mcg 1X ONCE 05/02/20 00:15 05/02/20 00:16 DC 05/01/20 23:49 50 MCG Furosemide (Lasix) 40 mg 1X ONCE 05/02/20 01:00 05/02/20 01:01 DC Insulin Human Regular 100 unit/ Sodium Chloride 101 ml @ 0 mls/hr CONT PRN PRN 05/02/20 00:30 Lactated Ringer's 1,000 ml @ 1,000 mls/hr 1X ONCE 05/02/20 01:00 05/02/20 01:59 Levofloxacin/ Dextrose 150 ml @ As Directed STK-MED ONCE 05/02/20 00:35 05/02/20 00:36 DC Sodium Chloride 100 ml @ As Directed STK-MED ONCE 05/02/20 00:53 05/02/20 00:53 DC Allergies Allergies Allergies Coded Allergies Type Severity Reaction Last Updated Verified No Known Drug Allergies 07/14/16 No Physical Exam Physical Exam Constitutional: Well developed, well nourished, patient appears ill, in acute distress HENT: Normocephalic, atraumatic, oropharynx dry, no oral exudates, nose normal. [] Eyes: PERRLA, EOMI, conjunctiva normal, no discharge. [] Neck: Normal range of motion, Cardiovascular: Tachycardia, narrow, regular Lungs & Thorax: Tachypnea, shallow breaths, global rhonchi Abdomen: soft, no tenderness, no masses, no pulsatile masses. [] Skin: Warm, dry, no erythema, no rash capillary refill approximately 4 seconds Back: No tenderness, no CVA tenderness. [] Extremities: No tenderness, no cyanosis, no clubbing, ROM intact, no edema. [] Neurologic: Patient initially confused with GCS of 12, moving all extremities, groaning Current Patient Data Vital Signs Vital Signs Date Time Temp Pulse Resp B/P (MAP) Pulse Ox O2 Delivery O2 Flow Rate FiO2 05/01/20 23:49 Room Air Lab Results Laboratory Tests Test 05/01/20 23:10 05/01/20 23:15 White Blood Count 13.1 x10^3/uL (4.0-11.0) H Red Blood Count 4.74 x10^6/uL (3.50-5.40) Hemoglobin 14.2 g/dL (12.0-15.5) Hematocrit 44.7 % (36.0-47.0) Mean Corpuscular Volume 94 fL (79-100) Mean Corpuscular Hemoglobin 30 pg (25-35) Mean Corpuscular Hemoglobin Concent 32 g/dL (31-37) Red Cell Distribution Width 15.7 % (11.5-14.5) H Platelet Count 444 x10^3/uL (140-400) H Neutrophils (%) (Auto) 89 % (31-73) H Lymphocytes (%) (Auto) 5 % (24-48) L Monocytes (%) (Auto) 5 % (0-9) Eosinophils (%) (Auto) 0 % (0-3) Basophils (%) (Auto) 0 % (0-3) Neutrophils # (Auto) 11.7 x10^3uL (1.8-7.7) H Lymphocytes # (Auto) 0.6 x10^3/uL (1.0-4.8) L Monocytes # (Auto) 0.7 x10^3/uL (0.0-1.1) Eosinophils # (Auto) 0.0 x10^3/uL (0.0-0.7) Basophils # (Auto) 0.0 x10^3/uL (0.0-0.2) Sodium Level 139 mmol/L (136-145) Potassium Level 5.7 mmol/L (3.5-5.1) H Chloride Level 99 mmol/L (98-107) Carbon Dioxide Level 18 mmol/L (21-32) L Anion Gap 22 (6-14) H Blood Urea Nitrogen 82 mg/dL (7-20) H Creatinine 2.2 mg/dL (0.6-1.0) H Estimated GFR (Cockcroft-Gault) 26.7 BUN/Creatinine Ratio 37 (6-20) H Glucose Level 738 mg/dL (70-99) *H Lactic Acid Level 3.3 mmol/L (0.4-2.0) H Calcium Level 9.3 mg/dL (8.5-10.1) Phosphorus Level 4.8 mg/dL (2.6-4.7) H Magnesium Level 3.6 mg/dL (1.8-2.4) H Total Bilirubin 0.6 mg/dL (0.2-1.0) Aspartate Amino Transferase (AST) 17 U/L (15-37) Alanine Aminotransferase (ALT) 26 U/L (14-59) Alkaline Phosphatase 95 U/L (46-116) Troponin I Quantitative < 0.017 ng/mL (0-0.055) Total Protein 8.6 g/dL (6.4-8.2) H Albumin 2.5 g/dL (3.4-5.0) L Albumin/Globulin Ratio 0.4 (1.0-1.7) L Acetone Level Sm pos (NEG) POC Venous pH 7.29 (7.32-7.42) L POC Venous pCO2 36 mmHg (41-51) L POC Venous pO2 30 mmHg (20-40) Venous Blood HCO3 17 mmol/L (24-28) L POC Venous O2 Saturation (Radha) 52 % POC FiO2 21 EKG EKG Initial EKG with a rate of 159, QRS of 90, QTc of 475, no STEMI, appears to be 2-1 a flutter Repeat EKG after synchronized cardioversion with a rate of 93, QRS of 96, QTc of 448, no STEMI, sinus rhythm with PACs [] Radiology/Procedures Radiology/Procedures Chest x-ray with probable atypical pneumonia and some degree of pulmonary edema CT of the head with no acute intracranial findings [] Heart Score Risk Factors: Risk Factors: DM, Current or recent (<one month) smoker, HTN, HLP, family history of CAD, obesity. Risk Scores: Risk Factors: DM, Current or recent (<one month) smoker, HTN, HLP, family history of CAD, obesity. Course & Med Decision Making Course & Med Decision Making Patient is a 69-year-old female with past medical history significant for cardiovascular disease, some degree of heart failure, insulin dependent diabetes and hypothyroidism per family and EMS who presents with 3 days of altered mental status On arrival patient altered, tachycardic to 159 with probable A. fib/flutter, glucose greater than 700, tachypnea but not hypoxic. Patient immediately placed on the monitor with 2 peripheral IVs placed. Cardiac pads placed. When IVs were placed, patient appeared to self convert with heart rates in the low 100s. Patient with stat head CT that had no acute findings. Patient brought back to the trauma bay and synchronized cardioversion was prepared for. Used fentanyl for pain and anxiolysis before procedure. Had push dose epinephrine at the bedside for rescue. Lactated Ringer's running open. Fentanyl given first. Then patient cardioverted, synchronized at 125 J successfully. After c ardioversion, patient's altered mental status improved significantly, and was awake, alert and able to answer questions. Heart rate, blood pressure, respiratory rate all improved. Initial and repeat EKGs noted above. Troponin not concerning. Patient still critically ill with work-up suggestive of diabetic ketoacidosis with a pH of 7.2, bicarb of 17, glucose greater than 700 and ketones in the urine. Patient started on insulin and IV lactated Ringer's. Patient also probably suffering from sepsis secondary to pneumonia as chest x-ray suggestive of atypical pneumonia. Blood cultures obtained and started on Levaquin. Patient also hyperkalemic to 5.7 and given calcium gluconate. Overall patient is critically ill with diabetic ketoacidosis, sepsis likely se condary to pneumonia, hyperkalemia and had to be cardioverted due to unstable tachyarrhythmia. Discussed findings with family who showed up at the hospital sometime later and advised admission and transfer to [facility] intensive care unit. Patient and family grateful, verbalized understanding and agreed with plan of transfer/admission. [] Dragon Disclaimer Dragon Disclaimer This electronic medical record was generated, in whole or in part, using a voice recognition dictation system. Departure Departure: Impression: Primary Impression: Diabetic ketoacidosis Additional Impressions: Sepsis Tachyarrhythmia Altered mental status Disposition: 02 DC/TRF OTHER SHORT TERM HOS Condition: STABLE Referrals: EL GASTELUM (PCP) Problem Qualifiers JENNIFER CONWAY MD May 02, 2020 01:19
[2020-05-02 01:45] LABS: BACTERIA,URINE 0 /HPF (0-FEW); BILIRUBIN,URINE NEG (NEG); CLARITY,URINE HAZY; COLOR,URINE YELLOW; GLUCOSE,URINE >=1000 mg/dL (NEG); NITRITE,URINE NEG (NEG); RBC,URINE 0 /HPF (0-2); UROBILINOGEN,URINE 0.2 mg/dL (0.2 mg/dL); WBC,URINE OCC /HPF (0-4)
[2020-05-02 01:46] LABS: SQUAMOUS EPITHELIAL CELL,UR FEW /LPF; YEAST,URINE PRESENT /HPF
[2020-05-02 02:10] VITALS: BP 111/71
--- NOTE | 2020-05-02 03:15 | EKG ---
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
== END 2020-05-02 02:30 | disposition short-term general hospital (02) ==
LOC: ER 23:03
DX: U07.1 COVID-19 (principal); E11.10 Type 2 diabetes mellitus with ketoacidosis without coma; A41.9 Sepsis, unspecified organism; Z20.822 Contact with and (suspected) exposure to COVID-19; R41.82 Altered mental status, unspecified; E11.9 Type 2 diabetes mellitus without complications; Z90.49 Acquired absence of other specified parts of digestive tract; Z98.51 Tubal ligation status; Z98.890 Other specified postprocedural states
CPT/HCPCS: 36415; 70450; 71045; 80053; 81001; 82010; 82803; 82947; 83605; 83735; 84100; 84443; 84484; 85025; 87040; 93005; 96361; 96365; 96375; 99285; C9803; J0610; J1815; J1940; J1956; J3010; J7120; U0003

== ENCOUNTER → 2021-02-01 | Outpatient (CLI) | payer MEDICARE, OTHER ==
[~2021-02-01] MED LIST changes: +ACYC-12 PO; -ACYC400T PO
--- NOTE | 2021-02-01 17:01 | RAD ---
EXAM: RENAL ULTRASOUND CLINICAL HISTORY: Reason: CHRONIC KIDNEY DISEASE / Spl. Instructions: / History: COMPARISON: None available. TECHNIQUE: Ultrasound examination of the bilateral kidneys and urinary bladder was performed. FINDINGS: The right kidney measures 10.5 cm in bipolar length. The renal cortex is normal in thickness. Renal e chogenicity is normal. There is no evidence for hydronephrosis, shadowing renal calculus or focal ab normality . The left kidney measures 10.7 cm in bipolar length. The renal cortex is normal in thickness. Renal ec hogenicity is normal. There is no evidence for hydronephrosis, shadowing renal calculus. A 4.3 x 3.8 x 2.7 cm cyst is seen in the interpolar region without thick septations or solid component. Images of the partially filled urinary bladder are unremarkable. IMPRESSION: Simple appearing cyst is seen in the interpolar region of the left kidney. Electronically signed by: Magdiel Goodson MD (02/01/2021 4:58 PM) [id number]
== END ==
LOC: US 12:43
PROVIDERS: ATTEND Family Medicine
DX: N18.32 Chronic kidney disease, stage 3b (principal)
CPT/HCPCS: 76770